=== PATIENT | male | born 1945 | race American Indian/Alaskan Native ===

== ENCOUNTER 2017-10-02 16:08 | Emergency (ER) | payer MEDICARE ==
--- NOTE | 2017-10-02 16:40 | Emergency Department Report ---
Chief Complaint: Chest Pain Stated Complaint: COPD/CHEST TIGHTNESS - HPI History of Present Illness: This is a 72-year-old male nontoxic, well nourished in appearance, no acute signs of distress presents to the ED with c/o of chest tightness 1 month. Patient denies any shortness of breath, numbness, tingling, fever, chills, nausea or vomiting. Discussed pain as aching level of 4 out of 10. Patient denies any calf pain, or Tenderness. Denies recent travels, long car rides or recent hospital stays. Denies any hemoptysis. - Exam Vital Signs: Vital Signs 10/02/17 16:13 Temperature 98.7 F Pulse Rate 74 Respiratory 20 Rate Blood Pressure 143/91 O2 Sat by Pulse 100 Oximetry Physical Exam: GENERAL: The patient is a well-developed, well-nourished female in no apparent distress. Patient is alert and acting appropriately for age. Alert and oriented 3, no apparent distress, normal gait, atraumatic. LUNGS: Clear to auscultation. Non labor breathing. No intercostal retractions. Symmetrical with respiration, no wheezing, no rales, or crackles. HEART: Regular rate and rhythm without murmur, rubs or gallops. No reproducible. S1, S2 present, regular rate and rhythm without murmur, no rubs, no gallops. MSE screening note: Focused history and physical exam performed. Due to findings the following was ordered: 1- This initial assessment/diagnostic orders/clinical plan/ treatment(s) is/are subject to change based on pt's health status, clinical progression and re- assessment by fellow clinical providers in the ED. Further treatment and workup at subsequent clinical provers discretion. Patient/guardians urged not to elope from ED as their condition may be serious if not clinically assessed and managed. 2-chest x-ray/EKG 3-CBC, BMP, UA, troponin, BNP, cardiac CK ED Disposition for MSE Condition: Stable
[2017-10-02 16:56] LABS: Basophils % (Auto) 0.8 % (0.0-1.8); Hematocrit 41.8 % (35.5-45.6); Hemoglobin 13.8 gm/dl (11.8-15.2); Mean Corpuscular HGB Conc 33 % (32-34); Mean Corpuscular Hemoglobin 30 pg (28-32); Mean Corpuscular Volume 90 fl (84-94); Platelet Count 197 K/mm3 (140-440); Red Blood Count 4.65 M/mm3 (3.65-5.03); Red Cell Distribution Width 13.3 % (13.2-15.2); White Blood Count 5.2 K/mm3 (4.5-11.0)
[2017-10-02 17:32] LABS: Creatine Kinase MB 2.3 ng/mL (0.0-4.0)
[2017-10-02 17:33] LABS: Anion Gap 17 mmol/L; BUN/Creatinine Ratio 10; Blood Urea Nitrogen 14 mg/dL (9-20); Carbon Dioxide 28 mmol/L (22-30); Chloride 100.9 mmol/L (98-107); Creatine Kinase 252 units/L (55-170); Glucose 98 mg/dL (75-100); Potassium 3.2 mmol/L (3.6-5.0); Sodium 143 mmol/L (137-145)
[2017-10-02] MEDS ORDERED: TYLENOL PO ONE (23:23)
--- NOTE | 2017-10-02 23:24 | Emergency Department Report ---
ED General Adult HPI - General Chief complaint: Chest Pain Stated complaint: COPD/CHEST TIGHTNESS Time Seen by Provider: 10/02/17 23:07 Source: patient, RN notes reviewed, old records reviewed Mode of arrival: Ambulatory Limitations: No Limitations - History of Present Illness Initial comments: This is a 72-year-old male whom I have evaluated in the past. Primary care Dr.: Dr. Sauer Cardiology: Dr. Godoy Past medical history: Hypertension, high cholesterol, COPD, BPH and cardiac bypass Patient presents to the ER with a complaint of chest tightness. The chest tightness has been present for 1 month. It does not radiate anywhere. There is no vomiting, diaphoresis or shortness of breath. There is no leg pain, no leg swelling, no recent surgeries or hospitalizations, and there are no DVT or pulmonary embolus risk factors. The chest pain has no exacerbating or relieving factors. Patient also endorses occipital headache which has been present for 1 month on review of systems. It is not sudden or thunderclap in nature. It did not reach maximal intensity within an hour. It does not radiate anywhere. He does not have exacerbating or relieving factors. Patient denies loss of visual acuity, admits to chronic tinnitus in the right ear, which is not new, worsening or different, has no claudication or visual symptoms. -: Gradual, week(s) Location: head, chest Radiation: non-radiation Severity scale (0 -10): 2 Quality: aching Consistency: intermittent Improves with: none Worsens with: none Associated Symptoms: chest pain, headaches. denies: confusion, shortness of breath - Related Data Home Medications Medication Instructions Recorded Confirmed Last Taken Aspirin 81 mg PO QDAY 06/08/16 06/08/16 Unknown Tamsulosin [Flomax] 0.4 mg PO QDAY 06/08/16 06/08/16 Unknown Previous Rx's Medication Instructions Recorded Last Taken Type Arformoterol Nebu [Brovana Nebu] 15 mcg IH Q12HRT #30 ml 02/02/16 Unknown Rx Budesonide [Pulmicort Respules] 0.5 mg IH Q12HRT #30 nebu 02/02/16 Unknown Rx Fluticasone [Flonase] 100 mcg NS BID #1 bottle 02/02/16 Unknown Rx Ipratropium/Albuterol Sulfate 1 ampul IH TIDRT PRN #30 ampul.neb 02/02/16 Unknown Rx [DUONEB *Not for PRN Use*] Pantoprazole [Protonix TAB] 40 mg PO QDAY #30 tablet 02/02/16 Unknown Rx Metoprolol Xl [Metoprolol 25 mg PO QDAY #30 tablet 06/09/16 Unknown Rx SUCCINATE ER TAB] Acetaminophen [Tylenol Arthritis] 650 mg PO Q6HR PRN #30 tablet.er 10/03/17 Unknown Rx Aspirin [Aspirin BABY CHEW TAB] 81 mg PO QDAY #30 tab.chew 10/03/17 Unknown Rx Potassium Chloride 20 meq PO QDAY #10 packet 10/03/17 Unknown Rx Allergies Allergy/AdvReac Type Severity Reaction Status Date / Time cyclobenzaprine AdvReac Shortness Verified 10/02/17 16:13 of Breath ED Review of Systems ROS: Stated complaint: COPD/CHEST TIGHTNESS Other details as noted in HPI Constitutional: denies: fever Eyes: denies: eye discharge Respiratory: denies: wheezing Cardiovascular: chest pain Gastrointestinal: denies: vomiting Genitourinary: as per HPI Musculoskeletal: as per HPI Skin: as per HPI Neurological: headache ED Past Medical Hx - Past Medical History Hx Hypertension: Yes Hx Heart Attack/AMI: No (coronary artery disease) Hx COPD: Yes Additional medical history: CAD, 'prostate problems'[id number](triple) - Surgical History Hx Open Heart Surgery: Yes (CABG) Additional Surgical History: hernia repair - Social History Smoking Status: Former Smoker Substance Use Type: None - Medications Home Medications: Home Medications Medication Instructions Recorded Confirmed Last Taken Type Arformoterol Nebu [Brovana Nebu] 15 mcg IH Q12HRT #30 ml 02/02/16 06/08/16 Unknown Rx Budesonide [Pulmicort Respules] 0.5 mg IH Q12HRT #30 nebu 02/02/16 06/08/16 Unknown Rx Fluticasone [Flonase] 100 mcg NS BID #1 bottle 02/02/16 06/08/16 Unknown Rx Ipratropium/Albuterol Sulfate 1 ampul IH TIDRT PRN #30 ampul.neb 02/02/16 Unknown Rx [DUONEB *Not for PRN Use*] Pantoprazole [Protonix TAB] 40 mg PO QDAY #30 tablet 02/02/16 06/08/16 Unknown Rx Aspirin 81 mg PO QDAY 06/08/16 06/08/16 Unknown History Tamsulosin [Flomax] 0.4 mg PO QDAY 06/08/16 06/08/16 Unknown History Metoprolol Xl [Metoprolol 25 mg PO QDAY #30 tablet 06/09/16 Unknown Rx SUCCINATE ER TAB] Acetaminophen [Tylenol Arthritis] 650 mg PO Q6HR PRN #30 tablet.er 10/03/17 Unknown Rx Aspirin [Aspirin BABY CHEW TAB] 81 mg PO QDAY #30 tab.chew 10/03/17 Unknown Rx Potassium Chloride 20 meq PO QDAY #10 packet 10/03/17 Unknown Rx ED Physical Exam - General Limitations: No Limitations General appearance: alert, in no apparent distress - Head Head exam: Present: atraumatic, normocephalic - Eye Eye exam: Present: normal appearance, PERRL, EOMI, other (visual acuity intact to finger counting, color perception, reading at a close distance). Absent: nystagmus - ENT ENT exam: Present: normal exam, normal orophraynx, mucous membranes moist, normal external ear exam - Neck Neck exam: Present: normal inspection, full ROM. Absent: tenderness, meningismus - Respiratory Respiratory exam: Present: normal lung sounds bilaterally. Absent: respiratory distress, chest wall tenderness - Cardiovascular Cardiovascular Exam: Present: regular rate, normal rhythm, normal heart sounds. Absent: systolic murmur, diastolic murmur, rubs, gallop - GI/Abdominal GI/Abdominal exam: Present: soft, normal bowel sounds. Absent: distended, tenderness, guarding, rebound, rigid, pulsatile mass - Rectal Rectal exam: Present: deferred - Extremities Exam Extremities exam: Present: normal inspection, full ROM, normal capillary refill , other (no palpable cord. Negative Homans sign.). Absent: pedal edema, joint swelling, calf tenderness - Back Exam Back exam: Present: normal inspection, full ROM. Absent: paraspinal tenderness , vertebral tenderness - Neurological Exam Neurological exam: Present: alert, oriented X3, CN II-XII intact, normal gait, other (Extraocular movements intact. Tongue midline. No facial droop. Facial sensation intact to light touch in the V1, V2, V3 distribution bilaterally. 5 and 5 strength in 4 extremities.. Sensation is intact to light touch in 4 extremities.). Absent: motor sensory deficit - Psychiatric Psychiatric exam: Present: normal affect, normal mood - Skin Skin exam: Present: warm, dry, intact, normal color. Absent: rash ED Course Vital Signs 10/02/17 10/02/17 10/02/17 16:13 22:21 22:23 Temperature 98.7 F Pulse Rate 74 65 73 Respiratory 20 15 14 Rate Blood Pressure 143/91 150/95 Blood Pressure [Right] O2 Sat by Pulse 100 100 Oximetry 10/02/17 10/03/17 22:39 02:25 Temperature Pulse Rate 68 Respiratory 18 20 Rate Blood Pressure Blood Pressure 128/81 [Right] O2 Sat by Pulse 99 99 Oximetry - Reevaluation(s) Reevaluation #1: 10/03/17 00:51 Differential diagnosis, including but not limited to: Migraine headache, tension headache, cluster headache, COPD, costochondritis, pneumonia, acute coronary syndrome Assessment and plan: 72-year-old male with 1 month of atypical chest discomfort , low risk by JONNATHAN score, low risk by heart score, low risk by well's criteria , no pulmonary embolus or DVT risk factors. Upon initial examination, patient is sleeping in a stretcher in no distress. His neurologic examination is unremarkable. Patient treated with symptomatic medication. On repeat examination, still sleeping comfortably, wakes up easily, repeat neurologic examination unremarkable. Appreciate patient's age and risk factor cohort, but objectively speaking, given 1 month of symptoms, troponin negative 2, EKG unchanged and unremarkable when compared to prior 2, I think acute coronary syndrome is extraordinarily unlikely, patient at low risk for major adverse cardiac event. Headache is nonspecific, clinically sober at this time, GCS of 15, with an NIH score of 0, no clinical indicators by history to suggest temporal arteritis, ischemic stroke or hemorrhagic stroke. Patient will be treated symptomatically medication, and he can follow-up with his primary care doctor for his headache. Reevaluation #2: 10/03/17 01:59 Patient reassessed. Sleeping comfortably. In no distress. Repeat neurologic examination is unremarkable and unchanged when reexamined. CT scan demonstrates new lacunar infarct when compared to prior CT scan from 2013. Given clinical history and duration of symptoms, I think it is very unlikely that the patient's had an acute or subacute stroke. He can follow up in outpatient primary care doctor for this. ED Medical Decision Making - Lab Data Result diagrams: 10/02/17 16:42 10/02/17 16:42 Vital Signs 10/02/17 10/02/17 10/02/17 16:13 22:21 22:23 Temperature 98.7 F Pulse Rate 74 65 73 Respiratory 20 15 14 Rate Blood Pressure 143/91 150/95 O2 Sat by Pulse 100 100 Oximetry 10/02/17 22:39 Temperature Pulse Rate Respiratory 18 Rate Blood Pressure O2 Sat by Pulse 99 Oximetry Lab Results 10/02/17 10/02/17 Range/Units 16:42 16:42 WBC 5.2 (4.5-11.0) K/mm3 RBC 4.65 (3.65-5.03) M/mm3 Hgb 13.8 (11.8-15.2) gm/dl Hct 41.8 (35.5-45.6) % MCV 90 (84-94) fl MCH 30 (28-32) pg MCHC 33 (32-34) % RDW 13.3 (13.2-15.2) % Plt Count 197 (140-440) K/mm3 Lymph % (Auto) 34.6 (13.4-35.0) % Taney % (Auto) 7.8 H (0.0-7.3) % Eos % (Auto) 7.0 H (0.0-4.3) % Baso % (Auto) 0.8 (0.0-1.8) % Lymph # 1.8 (1.2-5.4) K/mm3 Taney # 0.4 (0.0-0.8) K/mm3 Eos # 0.4 (0.0-0.4) K/mm3 Baso # 0.0 (0.0-0.1) K/mm3 Seg Neutrophils % 49.8 (40.0-70.0) % Seg Neutrophils # 2.6 (1.8-7.7) K/mm3 Sodium 143 (137-145) mmol/L Potassium 3.2 L (3.6-5.0) mmol/L Chloride 100.9 (98-107) mmol/L Carbon Dioxide 28 (22-30) mmol/L Anion Gap 17 mmol/L BUN 14 (9-20) mg/dL Creatinine 1.4 (0.8-1.5) mg/dL Estimated GFR > 60 ml/min BUN/Creatinine Ratio 10 % Glucose 98 (75-100) mg/dL Calcium 9.0 (8.4-10.2) mg/dL Total Creatine Kinase 252 H (55-170) units/L CK-MB (CK-2) 2.3 (0.0-4.0) ng/mL CK-MB (CK-2) Rel Index 0.9 (0-4) Troponin T < 0.010 (0.00-0.029) ng/mL NT-Pro-B Natriuret Pep 46.47 (0-900) pg/mL - EKG Data -: EKG Interpreted by Me EKG shows normal: sinus rhythm - EKG Data When compared to previous EKG there are: no significant change 10/03/17 00:55 EKG #1 demonstrates normal sinus, 67 beats per minute, normal intervals, normal axis, not morphologically consistent with ST elevation myocardial infarction, unchanged from prior EKG from November 2012. EKG #2 is unchanged from prior. - Radiology Data Radiology results: report reviewed, image reviewed interpreted by me: X-ray of the chest is negative for acute disease. Status post median sternotomy. Chronic findings of COPD noted. CT scan of the brain demonstrates chronic findings. No acute findings noted. Subacute infarct is noted. Critical care attestation.: If time is entered above; I have spent that time in minutes in the direct care of this critically ill patient, excluding procedure time. ED Disposition Clinical Impression: Chest tightness, Hypokalemia Disposition: - TO HOME OR SELFCARE Is pt being admited?: No Does the pt Need Aspirin: No Condition: Stable Additional Instructions: Take medications as needed/directed. Follow-up with either your primary care doctor or corporate coordinator for chest discomfort within the next 5-7 days. Follow- up with your primary care doctor for your headache within the next week. Return to the ER right away with new pain, worsened pain, migration of pain, fevers, chills, lethargy, irritability, particularly vomiting, change in mental status, inability to tolerate liquid feeds. Prescriptions: Acetaminophen [Tylenol Arthritis] 650 mg PO Q6HR PRN #30 tablet.er PRN Reason: Pain Aspirin [Aspirin BABY CHEW TAB] 81 mg PO QDAY #30 tab.chew Potassium Chloride 20 meq PO QDAY #10 packet Referrals: PRIMARY CARE, [Primary Care Provider] - 3-5 Days CARA SAUER MD [Referring] - 3-5 Days CHASITY SAUER DO [Referring] - 3-5 Days KRISTYN SAUER MD [Referring] - 3-5 Days ALIVIA VALE MD [Staff Physician] - 3-5 Days
[2017-10-03] MEDS ORDERED: K-DUR PO ONE (00:54)
--- NOTE | 2017-10-03 01:47 | Cat Scan Report ---
FINAL REPORT EXAM: CT HEAD/BRAIN W/O CONTRAST. HISTORY: Headache. TECHNIQUE: Unenhanced axial CT images of the brain were obtained. Comparison is made with prior study 11/24/2012. FINDINGS: The cortical sulci and ventricles are within normal limits for patient's age. A 5 mm lacunar infarction is seen in the periventricular white matter adjacent to the right frontal horn, new compared to prior exam. There are superimposed patchy areas of low-attenuation in the periventricular and subcortical white matter, nonspecific but most likely chronic small vessel ischemic disease, stable in appearance. The maier-white differentiation is maintained. There is no extra-axial fluid collection, mass, mass effect, midline shift, hydrocephalus, or acute intracranial hemorrhage. There is moderate sinus mucosal thickening in bilateral ethmoid air cells. There is also mild sinus mucosal thickening in the right frontal and right sphenoid sinuses. The remainder of the visualized paranasal sinuses and mastoid air cells are clear. There are no air-fluid levels. Overall, the paranasal sinus mucosal disease is not as severe as seen on prior exam. There is no skull fracture or other osseous abnormality. The visualized orbits and globes are grossly unremarkable. IMPRESSION: 1. No acute intracranial abnormality. 2. 5 mm lacunar infarction in the periventricular white matter adjacent to the right frontal horn, new compared to prior exam. Probable chronic small vessel ischemic disease, stable compared to 11/24/2012. 3. Paranasal sinus mucosal disease, overall slightly improved compared to prior exam.
[2017-10-03 02:37] VITALS: BP 128/81
--- NOTE | 2017-10-03 10:21 | XRay Report ---
CHEST 2 VIEWS INDICATION: Chest pain. COMPARISON: 09/12/2017 FINDINGS: PA and lateral chest radiographs demonstrate stable cardiomediastinal silhouette, post CABG changes and mildly hyperexpanded lungs. No pleural effusions or CHF. Biapical scarring/pleural thickening. Stable bony degenerative changes, including mild lower thoracic levoscoliosis. CONCLUSION: No acute chest process or significant interval change, as described. Thank you for the opportunity to participate in this patient's care.
== END 2017-10-03 02:37 | disposition home or self-care (01) ==
LOC: ED 16:08
DX: R07.89 Other chest pain (principal); E87.6 Hypokalemia; I10 Essential (primary) hypertension; J44.9 Chronic obstructive pulmonary disease, unspecified; I25.2 Old myocardial infarction; I25.10 Atherosclerotic heart disease of native coronary artery without angina pectoris; Z87.891 Personal history of nicotine dependence; Z79.82 Long term (current) use of aspirin; Z98.890 Other specified postprocedural states; Z88.8 Allergy status to other drugs, medicaments and biological substances
CPT/HCPCS: 36415; 70450; 71020; 80048; 82550; 82553; 83880; 84484; 85025; 93005; 93010; 99284

== ENCOUNTER 2017-12-03 01:35 | Emergency (ER) | payer MEDICARE ==
[2017-12-03] MEDS ORDERED: ASPIRIN PO ONE (10:27)
[2017-12-03 10:54] LABS: Basophils % (Auto) 0.6 % (0.0-1.8); Eosinophils # (Auto) 0.4 K/mm3 (0.0-0.4); Eosinophils % (Auto) 7.3 % (0.0-4.3); Hematocrit 41.1 % (35.5-45.6); Lymphocytes # (Auto) 1.8 K/mm3 (1.2-5.4); Lymphocytes % (Auto) 31.1 % (13.4-35.0); Mean Corpuscular HGB Conc 34 % (32-34); Mean Corpuscular Hemoglobin 31 pg (28-32); Mean Corpuscular Volume 90 fl (84-94); Monocytes # (Auto) 0.5 K/mm3 (0.0-0.8); Monocytes % (Auto) 7.7 % (0.0-7.3); Platelet Count 173 K/mm3 (140-440); Red Blood Count 4.59 M/mm3 (3.65-5.03); Red Cell Distribution Width 13.4 % (13.2-15.2)
[2017-12-03 11:10] LABS: BUN/Creatinine Ratio 12; Blood Urea Nitrogen 14 mg/dL (9-20); Calcium 9.2 mg/dL (8.4-10.2); Hemolysis Index 10
[2017-12-03] MEDS ORDERED: CATAPRES PO ONE (16:25)
--- NOTE | 2017-12-03 16:58 | Emergency Department Report ---
ED Chest Pain HPI - General Chief Complaint: Chest Pain Stated Complaint: CHEST PAIN Time Seen by Provider: 12/03/17 16:14 Source: patient Mode of arrival: Ambulatory Limitations: No Limitations - History of Present Illness Initial Comments: Patient is a 72-year-old [place] male who is presenting with chest discomfort. Patient states he has a history of coronary disease with CABG in 2011 as well as GERD is presenting stating that several days ago he made some pork chops and ate them fine. Patient then states that yesterday he ate while in the [place] [employer] and [place] and that and thinks it may have been just too salty. Patient states his blood pressure did elevate and he came to the hospital because of his blood pressure. Patient states he does have some chest tightness and burning sensation that happens intermittently however this present for several months and has been attributed to his GERD. Chest tightness is located in the epigastrium and he states is a 3 out of 10 intermittent. She states this is also been slightly worse since he ate pork chops. Patient currently has no chest discomfort during the time of the history and physical patient states he has a very mild headache blood pressure is 160/93. Patient is denying any nausea vomiting diarrhea chest tightness fever cough at this time. Severity scale (0 -10): 2 - Related Data Home Medications Medication Instructions Recorded Confirmed Last Taken Aspirin 81 mg PO QDAY 06/08/16 06/08/16 Unknown Tamsulosin [Flomax] 0.4 mg PO QDAY 06/08/16 06/08/16 Unknown Previous Rx's Medication Instructions Recorded Last Taken Type Arformoterol Nebu [Brovana Nebu] 15 mcg IH Q12HRT #30 ml 02/02/16 Unknown Rx Budesonide [Pulmicort Respules] 0.5 mg IH Q12HRT #30 nebu 02/02/16 Unknown Rx Fluticasone [Flonase] 100 mcg NS BID #1 bottle 02/02/16 Unknown Rx Ipratropium/Albuterol Sulfate 1 ampul IH TIDRT PRN #30 ampul.neb 02/02/16 Unknown Rx [DUONEB *Not for PRN Use*] Pantoprazole [Protonix TAB] 40 mg PO QDAY #30 tablet 02/02/16 Unknown Rx Metoprolol Xl [Metoprolol 25 mg PO QDAY #30 tablet 06/09/16 Unknown Rx SUCCINATE ER TAB] Acetaminophen [Tylenol Arthritis] 650 mg PO Q6HR PRN #30 tablet.er 10/03/17 Unknown Rx Aspirin [Aspirin BABY CHEW TAB] 81 mg PO QDAY #30 tab.chew 10/03/17 Unknown Rx Potassium Chloride 20 meq PO QDAY #10 packet 10/03/17 Unknown Rx Sucralfate [Carafate] 1 gm PO Q6HR 20 Days tablet 12/03/17 Unknown Rx Allergies Allergy/AdvReac Type Severity Reaction Status Date / Time cyclobenzaprine AdvReac Shortness Verified 10/02/17 16:13 of Breath Heart Score - HEART Score History: Slightly suspicious EKG: Normal Age: > 65 Risk factors: > 3 risk factors or hx of atherosclerotic disease Troponin: < normal limit HEART Score: 4 ED Review of Systems ROS: Stated complaint: CHEST PAIN Other details as noted in HPI Comment: All other systems reviewed and negative ED Past Medical Hx - Past Medical History Hx Hypertension: Yes Hx Heart Attack/AMI: No (coronary artery disease) Hx COPD: Yes Additional medical history: CAD, 'prostate problems'Cabjeannette 2011(triple) - Surgical History Past Surgical History?: Yes Hx Open Heart Surgery: Yes (CABG) Additional Surgical History: hernia repair - Social History Smoking Status: Never Smoker Substance Use Type: None - Medications Home Medications: Home Medications Medication Instructions Recorded Confirmed Last Taken Type Arformoterol Nebu [Brovana Nebu] 15 mcg IH Q12HRT #30 ml 02/02/16 06/08/16 Unknown Rx Budesonide [Pulmicort Respules] 0.5 mg IH Q12HRT #30 nebu 02/02/16 06/08/16 Unknown Rx Fluticasone [Flonase] 100 mcg NS BID #1 bottle 02/02/16 06/08/16 Unknown Rx Ipratropium/Albuterol Sulfate 1 ampul IH TIDRT PRN #30 ampul.neb 02/02/16 Unknown Rx [DUONEB *Not for PRN Use*] Pantoprazole [Protonix TAB] 40 mg PO QDAY #30 tablet 02/02/16 06/08/16 Unknown Rx Aspirin 81 mg PO QDAY 06/08/16 06/08/16 Unknown History Tamsulosin [Flomax] 0.4 mg PO QDAY 06/08/16 06/08/16 Unknown History Metoprolol Xl [Metoprolol 25 mg PO QDAY #30 tablet 06/09/16 Unknown Rx SUCCINATE ER TAB] Acetaminophen [Tylenol Arthritis] 650 mg PO Q6HR PRN #30 tablet.er 10/03/17 Unknown Rx Aspirin [Aspirin BABY CHEW TAB] 81 mg PO QDAY #30 tab.chew 10/03/17 Unknown Rx Potassium Chloride 20 meq PO QDAY #10 packet 10/03/17 Unknown Rx Sucralfate [Carafate] 1 gm PO Q6HR 20 Days tablet 12/03/17 Unknown Rx ED Physical Exam - General Limitations: No Limitations General appearance: alert, in no apparent distress - Head Head exam: Present: atraumatic, normocephalic - Eye Eye exam: Present: normal appearance - ENT ENT exam: Present: mucous membranes moist - Neck Neck exam: Present: normal inspection - Respiratory Respiratory exam: Present: normal lung sounds bilaterally. Absent: respiratory distress - Cardiovascular Cardiovascular Exam: Present: regular rate, normal rhythm. Absent: systolic murmur, diastolic murmur, rubs, gallop - GI/Abdominal GI/Abdominal exam: Present: soft, normal bowel sounds - Rectal Rectal exam: Present: deferred - Extremities Exam Extremities exam: Present: normal inspection - Back Exam Back exam: Present: normal inspection - Neurological Exam Neurological exam: Present: alert, oriented X3 - Psychiatric Psychiatric exam: Present: normal affect, normal mood - Skin Skin exam: Present: warm, dry, intact, normal color. Absent: rash ED Course Vital Signs 12/03/17 12/03/17 12/03/17 01:41 01:55 16:18 Temperature 98.2 F 98.2 F Pulse Rate 78 77 Respiratory 18 17 16 Rate Blood Pressure 170/106 170/106 O2 Sat by Pulse 96 99 99 Oximetry ED Medical Decision Making - Lab Data Result diagrams: 12/03/17 10:33 12/03/17 10:33 Lab Results 12/03/17 12/03/17 12/03/17 Range/Units 10:33 10:33 13:26 WBC 5.9 (4.5-11.0) K/mm3 RBC 4.59 (3.65-5.03) M/mm3 Hgb 14.0 (11.8-15.2) gm/dl Hct 41.1 (35.5-45.6) % MCV 90 (84-94) fl MCH 31 (28-32) pg MCHC 34 (32-34) % RDW 13.4 (13.2-15.2) % Plt Count 173 (140-440) K/mm3 Lymph % (Auto) 31.1 (13.4-35.0) % Benson % (Auto) 7.7 H (0.0-7.3) % Eos % (Auto) 7.3 H (0.0-4.3) % Baso % (Auto) 0.6 (0.0-1.8) % Lymph # 1.8 (1.2-5.4) K/mm3 Benson # 0.5 (0.0-0.8) K/mm3 Eos # 0.4 (0.0-0.4) K/mm3 Baso # 0.0 (0.0-0.1) K/mm3 Seg Neutrophils % 53.3 (40.0-70.0) % Seg Neutrophils # 3.1 (1.8-7.7) K/mm3 Sodium 143 (137-145) mmol/L Potassium 3.7 (3.6-5.0) mmol/L Chloride 103.0 (98-107) mmol/L Carbon Dioxide 29 (22-30) mmol/L Anion Gap 15 mmol/L BUN 14 (9-20) mg/dL Creatinine 1.2 (0.8-1.5) mg/dL Estimated GFR > 60 ml/min BUN/Creatinine Ratio 12 % Glucose 99 (75-100) mg/dL Calcium 9.2 (8.4-10.2) mg/dL Troponin T < 0.010 < 0.010 (0.00-0.029) ng/mL - EKG Data -: EKG Interpreted by Nm - EKG Data Interpretation: other (EKG shows sinus rhythm with a rate of 61. His evidence of LVH normal axis normal intervals no ST segment elevation or depressions time of interpretation is 1118) - Medical Decision Making Patient is a 72-year-old [place] male who is presenting with elevation of his blood pressure. Patient initially had a blood pressure 170/106. It's time of discharge 145 systolic patient has no headache currently is feeling well. Patient states that his chest discomfort is most likely secondary to GERD this is located in epigastrium patient has no tenderness on lateral palpation. Patient will be started on Carafate for GERD be discharged home Critical care attestation.: If time is entered above; I have spent that time in minutes in the direct care of this critically ill patient, excluding procedure time. ED Disposition Clinical Impression: Atypical chest pain, Asymptomatic hypertensive urgency GERD (gastroesophageal reflux disease) Qualifiers: Esophagitis presence: esophagitis presence not specified Qualified Code(s): K21.9 - Gastro-esophageal reflux disease without esophagitis Disposition: TO HOME OR SELFCARE Is pt being admited?: No Does the pt Need Aspirin: No Condition: Stable Instructions: Chest Pain (ED), Hypertension (ED) Additional Instructions: Please have your primary care physician or recheck your blood pressure in one week. If the elevated blood pressure was secondary to the pork chops that she ate this should be down by next week without having to change her blood pressure medications. Please continue to avoid salty foods Prescriptions: Sucralfate [Carafate] 1 gm PO Q6HR 20 Days tablet Referrals: PRIMARY CARE, [Primary Care Provider] - 3-5 Days
[2017-12-03 17:53] VITALS: BP 139/87
[2017-12-03] MEDS ORDERED: ECOTRIN PO ONE (17:56)
== END 2017-12-03 18:07 | disposition home or self-care (01) ==
LOC: ED 01:35
DX: K21.9 Gastro-esophageal reflux disease without esophagitis (principal); I10 Essential (primary) hypertension; R07.9 Chest pain, unspecified; J44.9 Chronic obstructive pulmonary disease, unspecified
CPT/HCPCS: 36415; 80048; 84484; 85025; 93005; 93010; 99283

== ENCOUNTER 2017-12-26 11:20 | Outpatient (CLI) | payer MEDICARE ==
--- NOTE | 2017-12-26 15:56 | Cat Scan Report ---
CT CHEST WITHOUT CONTRAST INDICATION: Chest wall pain. COMPARISON: None similar. FINDINGS: Noncontrast chest CT demonstrates post CABG changes/coronary calcifications. Normal heart size. No effusions. Assessment of the great vessels and for detecting subtle lymphadenopathy limited due to lack of IV contrast. Patent central airway. No significant axillary lymphadenopathy. Grossly unremarkable left thyroid lobe, though right thyroid lobe not visible. Mild bilateral emphysematous changes, most involving the upper lobes. Mild biapical scarring as well. No focal suspicious lung masses. Nonspecific distal esophageal wall prominence/thickening, not excluded for gastroesophageal reflux and/or hiatal hernia, amongst others. Included abdomen demonstrates mild infrarenal ectasia with caliber up to 2.8 cm, axial image 141, series 2. Mild lower thoracic-lumbar dextroscoliosis with L2-L3 asymmetric disc narrowing and spurring on the left. Lower cervical spine degenerative changes also noted. CONCLUSION: No acute chest CT abnormality on this unenhanced exam with various other findings as COPD, post CABG changes, nonvisualized right thyroid lobe, distal esophageal thickening and distal aortic ectasia, amongst others, as detailed above. Please correlate. Thank you for the opportunity to participate in this patient's care.
== END 2017-12-26 11:21 | disposition home or self-care (01) ==
LOC: CT 11:20
PROVIDERS: ATTEND Family Medicine
DX: J44.9 Chronic obstructive pulmonary disease, unspecified (principal); I25.10 Atherosclerotic heart disease of native coronary artery without angina pectoris; R07.89 Other chest pain; M41.85 Other forms of scoliosis, thoracolumbar region; M47.892 Other spondylosis, cervical region; Z95.1 Presence of aortocoronary bypass graft
CPT/HCPCS: 71250

== ENCOUNTER 2019-03-28 16:19 | Emergency (ER) | payer MEDICARE ==
--- NOTE | 2019-03-28 16:35 | Emergency Department Report ---
Blank Doc - Documentation Documentation: states he had a "light headache" two hours ago which made him check his pressure 202/77 pt states that his blood pressure was elevated no ROSS currently states his vision feels blurry today and still feels blurry now no numbness or weakness was started on this medication two weeks ago, he takes telmisartan 20 mg previously took metoprolol 40 mg
[2019-03-28 16:54] LABS: Basophils % (Auto) 0.9 % (0.0-1.8); Eosinophils # (Auto) 0.4 K/mm3 (0.0-0.4); Eosinophils % (Auto) 8.6 % (0.0-4.3); Hematocrit 39.9 % (35.5-45.6); Hemoglobin 13.4 gm/dl (11.8-15.2); Lymphocytes # (Auto) 1.9 K/mm3 (1.2-5.4); Lymphocytes % (Auto) 40.1 % (13.4-35.0); Mean Corpuscular HGB Conc 34 % (32-34); Mean Corpuscular Volume 90 fl (84-94); Monocytes # (Auto) 0.4 K/mm3 (0.0-0.8); Monocytes % (Auto) 7.9 % (0.0-7.3); Platelet Count 166 K/mm3 (140-440); Red Blood Count 4.46 M/mm3 (3.65-5.03); Red Cell Distribution Width 14.3 % (13.2-15.2)
[2019-03-28 17:09] LABS: Bilirubin,Urine NEG (Negative); Blood,Urine NEG (Negative); Color,Urine Straw (Yellow); Protein,Urine <15 mg/dL mg/dL (Negative); Urobilinogen,Urine < 2.0 mg/dL (<2.0); WBC,Urine < 1.0 /HPF (0.0-6.0)
--- NOTE | 2019-03-28 17:41 | Emergency Department Report ---
ED Dizziness HPI - General Chief Complaint: High BP Stated Complaint: HBP Time Seen by Provider: 03/28/19 17:21 Source: patient Mode of arrival: Ambulatory Limitations: No Limitations - History of Present Illness Initial Comments: Patient is a 73-year-old male presents to emergency room with complaints of high blood pressure. 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 Patient's current blood pressure is 191/109. Patient denies chest pain or shortness of breath. Patient states prior to arrival he was a little lightheaded and had some blurry vision but that has since resolved. She states approximately 2 weeks ago he started a new blood pressure medication. MD Complaint: lightheadedness -: Sudden Timing: sudden onset, now resolved Description: lightheadedness History of Same: No History of Trauma: No Severity: mild Improves With: rest Worsens With: position, exertion Associated Symptoms: denies: ataxia, chest pain, confusion, cough, diaphoresis, fever/chills, loss of appetite, malaise, rash, seizure, shortness of breath, syn cope, weakness - Related Data Home Medications Medication Instructions Recorded Confirmed Last Taken Aspirin 81 mg PO QDAY 06/08/16 03/28/19 Unknown Tamsulosin [Flomax] 0.4 mg PO QDAY 06/08/16 03/28/19 Unknown Previous Rx's Medication Instructions Recorded Last Taken Type Arformoterol Nebu [Brovana Nebu] 15 mcg IH Q12HRT #30 ml 02/02/16 Unknown Rx Budesonide [Pulmicort Respules] 0.5 mg IH Q12HRT #30 nebu 02/02/16 Unknown Rx Fluticasone [Flonase] 100 mcg NS BID #1 bottle 02/02/16 Unknown Rx Ipratropium/Albuterol Sulfate 1 ampul IH TIDRT PRN #30 ampul.neb 02/02/16 Unknown Rx [DUONEB *Not for PRN Use*] Pantoprazole [Protonix TAB] 40 mg PO QDAY #30 tablet 02/02/16 Unknown Rx Metoprolol Xl [Metoprolol 25 mg PO QDAY #30 tablet 06/09/16 Unknown Rx SUCCINATE ER TAB] Acetaminophen [Tylenol Arthritis] 650 mg PO Q6HR PRN #30 tablet.er 10/03/17 Unknown Rx Aspirin [Aspirin BABY CHEW TAB] 81 mg PO QDAY #30 tab.chew 10/03/17 Unknown Rx Potassium Chloride 20 meq PO QDAY #10 packet 10/03/17 Unknown Rx Sucralfate [Carafate] 1 gm PO Q6HR 20 Days tablet 12/03/17 Unknown Rx Telmisartan [Micardis] 20 mg PO BID 10 Days #20 tablet 03/28/19 Unknown Rx Allergies Allergy/AdvReac Type Severity Reaction Status Date / Time cyclobenzaprine AdvReac Shortness Verified 03/28/19 16:19 of Breath ED Review of Systems ROS: Stated complaint: HBP Other details as noted in HPI Constitutional: denies: chills, fever Eyes: denies: eye pain, eye discharge, vision change ENT: denies: ear pain, throat pain Respiratory: denies: cough, shortness of breath, wheezing Cardiovascular: denies: chest pain, palpitations Endocrine: no symptoms reported Gastrointestinal: denies: abdominal pain, nausea, diarrhea Genitourinary: denies: urgency, dysuria Musculoskeletal: denies: back pain, joint swelling, arthralgia Skin: denies: rash, lesions Neurological: denies: headache, weakness, paresthesias Psychiatric: denies: anxiety, depression Hematological/Lymphatic: denies: easy bleeding, easy bruising ED Past Medical Hx - Past Medical History Previous Medical History?: Yes Hx Hypertension: Yes Hx COPD: Yes Additional medical history: CAD, "prostate problems" - Surgical History Past Surgical History?: Yes Hx Open Heart Surgery: Yes (CABG (, 2011)) Additional Surgical History: hernia repair - Family History Family history: no significant - Social History Smoking Status: Never Smoker Substance Use Type: None - Medications Home Medications: Home Medications Medication Instructions Recorded Confirmed Last Taken Type Arformoterol Nebu [Brovana Nebu] 15 mcg IH Q12HRT #30 ml 02/02/16 03/28/19 Unknown Rx Budesonide [Pulmicort Respules] 0.5 mg IH Q12HRT #30 nebu 02/02/16 03/28/19 Unknown Rx Fluticasone [Flonase] 100 mcg NS BID #1 bottle 02/02/16 03/28/19 Unknown Rx Ipratropium/Albuterol Sulfate 1 ampul IH TIDRT PRN #30 ampul.neb 02/02/16 03/28/19 Unknown Rx [DUONEB *Not for PRN Use*] Pantoprazole [Protonix TAB] 40 mg PO QDAY #30 tablet 02/02/16 03/28/19 Unknown Rx Aspirin 81 mg PO QDAY 06/08/16 03/28/19 Unknown History Tamsulosin [Flomax] 0.4 mg PO QDAY 06/08/16 03/28/19 Unknown History Metoprolol Xl [Metoprolol 25 mg PO QDAY #30 tablet 06/09/16 03/28/19 Unknown Rx SUCCINATE ER TAB] Acetaminophen [Tylenol Arthritis] 650 mg PO Q6HR PRN #30 tablet.er 10/03/17 03/28/19 Unknown Rx Aspirin [Aspirin BABY CHEW TAB] 81 mg PO QDAY #30 tab.chew 10/03/17 03/28/19 Unknown Rx Potassium Chloride 20 meq PO QDAY #10 packet 10/03/17 03/28/19 Unknown Rx Sucralfate [Carafate] 1 gm PO Q6HR 20 Days tablet 12/03/17 03/28/19 Unknown Rx Telmisartan [Micardis] 20 mg PO BID 10 Days #20 tablet 03/28/19 Unknown Rx ED Physical Exam - General Limitations: No Limitations General appearance: alert, in no apparent distress - Head Head exam: Present: atraumatic, normocephalic - Eye Eye exam: Present: normal appearance, PERRL Pupils: Present: normal accommodation - ENT ENT exam: Present: mucous membranes moist - Neck Neck exam: Present: normal inspection, full ROM. Absent: tenderness, meningismus, lymphadenopathy, thyromegaly - Respiratory Respiratory exam: Present: normal lung sounds bilaterally. Absent: respiratory distress - Cardiovascular Cardiovascular Exam: Present: regular rate, normal rhythm. Absent: systolic murmur, diastolic murmur, rubs, gallop - GI/Abdominal GI/Abdominal exam: Present: soft, normal bowel sounds. Absent: distended, tenderness - Rectal Rectal exam: Present: deferred - Extremities Exam Extremities exam: Present: normal inspection, full ROM. Absent: tenderness - Back Exam Back exam: Present: normal inspection, full ROM - Neurological Exam Neurological exam: Present: alert, oriented X3, normal gait - Psychiatric Psychiatric exam: Present: normal affect, normal mood - Skin Skin exam: Present: warm, dry, intact, normal color. Absent: rash ED Course Vital Signs 03/28/19 03/28/19 03/28/19 16:32 17:35 17:38 Temperature 98.5 F Pulse Rate 78 70 72 Respiratory 16 14 13 Rate Blood Pressure Blood Pressure 191/109 177/110 [Left] O2 Sat by Pulse 96 98 99 Oximetry 03/28/19 03/28/19 03/28/19 17:41 17:46 18:00 Temperature Pulse Rate 60 58 L Respiratory 14 17 16 Rate Blood Pressure 177/110 177/110 Blood Pressure [Left] O2 Sat by Pulse 99 98 Oximetry 03/28/19 03/28/19 03/28/19 18:10 18:16 18:30 Temperature Pulse Rate 60 60 58 L Respiratory 14 22 16 Rate Blood Pressure 178/104 177/110 Blood Pressure 178/104 [Left] O2 Sat by Pulse 98 97 98 Oximetry 03/28/19 03/28/19 18:40 18:46 Temperature Pulse Rate 62 60 Respiratory 16 16 Rate Blood Pressure 161/98 Blood Pressure 161/98 [Left] O2 Sat by Pulse 98 97 Oximetry - Reevaluation(s) Reevaluation #1: Discussed all results with patient. Patient stable for discharge. Patient will be discharged home. Patient agrees plan of care. Discussed all discharge instructions the patient. Patient voiced understanding of discharge instructions. 03/28/19 18:35 ED Medical Decision Making - Lab Data Result diagrams: 03/28/19 16:40 03/28/19 16:40 - Radiology Data Radiology results: report reviewed PROCEDURE: CT HEAD/BRAIN WO CON TECHNIQUE: Computerized tomography of the head was performed without contrast material. CT DOSE LENGTH PRODUCT: 805.4 mGycm HISTORY: elevated BP, blurry vision COMPARISONS: Head CT dated October 02, 2017 . FINDINGS: There is no evidence evidence of an acute intracranial process, intracranial hemorrhage or mass effect. Ventricular size is concordant with the degree of atrophy. There is atherosclerotic vascular calcification of the internal carotid arteries bilaterally at the skull base. The visualized portions of the orbits, paranasal and mastoid sinuses are notable for moderate bilateral ethmoid sinus mucosal thickening and near complete opacification of the visualized portion of the left maxillary sinus with an air-fluid level. The bony structures are unremarkable. IMPRESSION: 1. No evidence of an acute intracranial process, intracranial hemorrhage or mass effect. If there is a clinical suspicion of an acute intracranial process MRI brain may be helpful. 2. Bilateral ethmoid and left maxillary sinus disease with air-fluid level left maxillary sinus suggestive of acute sinusitis - Medical Decision Making Patient is a 73-year-old male presents emergency room with multiple complaints of blurry vision and lightheadedness and elevated blood pressure. Symptoms are most likely secondary to elevated blood pressure. Labs are unremarkable. CT is negative. We will increase the patient's blood pressure medications. Patient was initially started on telmisartan 20 mg and we will increase to 40 per day. - Differential Diagnosis high blood pressure. Lightheadedness.Vision. Critical care attestation.: If time is entered above; I have spent that time in minutes in the direct care o f this critically ill patient, excluding procedure time. ED Disposition Clinical Impression: Lightheadedness HTN (hypertension) Qualifiers: Hypertension type: essential hypertension Qualified Code(s): I10 - Essential (primary) hypertension Disposition: TO HOME OR SELFCARE Is pt being admited?: No Does the pt Need Aspirin: No Condition: Stable Instructions: DASH Eating Plan (ED), Low Sodium Diet (ED), Hypertension (ED) Additional Instructions: Patient to follow-up with primary care in 2-3 days. Patient to take Tylenol or ibuprofen when necessary for pain. Patient to return to ER if condition worsens. Patient to take meds as directed. Patient to increase water. Patient to rest. Patient to continue all meds. Patient is a low-salt diet. Patient heart healthy diet. Prescriptions: Telmisartan [Micardis] 20 mg PO BID 10 Days #20 tablet Referrals: TRIP RINCON MD [Primary Care Provider] - 2-3 Days Time of Disposition: 18:40
--- NOTE | 2019-03-28 18:23 | Cat Scan Report ---
PROCEDURE: CT HEAD/BRAIN WO CON TECHNIQUE: Computerized tomography of the head was performed without contrast material. CT DOSE LENGTH PRODUCT: 805.4 mGycm HISTORY: elevated BP, blurry vision COMPARISONS: Head CT dated October 02, 2017 . FINDINGS: There is no evidence evidence of an acute intracranial process, intracranial hemorrhage or mass effec t. Ventricular size is concordant with the degree of atrophy. There is atherosclerotic vascular calcification of the internal carotid arteries bilaterally at the s kull base. The visualized portions of the orbits, paranasal and mastoid sinuses are notable for moderate bilater al ethmoid sinus mucosal thickening and near complete opacification of the visualized portion of the left maxillary sinus with an air-fluid level. The bony structures are unremarkable. IMPRESSION: 1. No evidence of an acute intracranial process, intracranial hemorrhage or mass effect. If there is a clinical suspicion of an acute intracranial process MRI brain may be helpful. 2. Bilateral ethmoid and left maxillary sinus disease with air-fluid level left maxillary sinus sugge stive of acute sinusitis. This document is electronically signed by Rachel Quezada MD., Mar 28 2019 06:21:50 PM ET
[2019-03-28 18:49] VITALS: BP 161/98
== END 2019-03-28 18:45 | disposition home or self-care (01) ==
LOC: ED 16:19
DX: I10 Essential (primary) hypertension (principal); J44.9 Chronic obstructive pulmonary disease, unspecified; Z95.1 Presence of aortocoronary bypass graft; Z79.899 Other long term (current) drug therapy; Z88.8 Allergy status to other drugs, medicaments and biological substances
CPT/HCPCS: 36415; 70450; 80048; 81001; 85025

== ENCOUNTER 2019-09-29 08:07 | Emergency (ER) | payer MEDICARE ==
[2019-09-29 10:33] LABS: Basophils % (Auto) 1.1 % (0.0-1.8); Eosinophils # (Auto) 0.2 K/mm3 (0.0-0.4); Eosinophils % (Auto) 4.1 % (0.0-4.3); Hematocrit 39.2 % (35.5-45.6); Hemoglobin 13.3 gm/dl (11.8-15.2); Lymphocytes # (Auto) 1.1 K/mm3 (1.2-5.4); Lymphocytes % (Auto) 27.2 % (13.4-35.0); Mean Corpuscular HGB Conc 34 % (32-34); Mean Corpuscular Volume 89 fl (84-94); Monocytes # (Auto) 0.3 K/mm3 (0.0-0.8); Monocytes % (Auto) 7.8 % (0.0-7.3); Platelet Count 150 K/mm3 (140-440); Red Blood Count 4.39 M/mm3 (3.65-5.03); Red Cell Distribution Width 14.9 % (13.2-15.2)
[2019-09-29 10:55] LABS: Calcium 9.2 mg/dL (8.4-10.2); Creatine Kinase MB 1.7 ng/mL (0.0-4.0)
[2019-09-29 10:58] LABS: Alanine Aminotransferase 17 units/L (7-56); Albumin 4.1 g/dL (3.9-5); Bilirubin,Direct < 0.2 mg/dL (0-0.2)
--- NOTE | 2019-09-29 11:06 | XRay Report ---
CHEST 1 VIEW INDICATION / CLINICAL INFORMATION: hypertension. COMPARISON: 10/02/2017 FINDINGS: SUPPORT DEVICES: None. HEART / MEDIASTINUM: Changes of prior median sternotomy are again noted LUNGS / PLEURA: No significant pulmonary or pleural abnormality.. No pneumothorax. ADDITIONAL FINDINGS: No significant additional findings. IMPRESSION: 1. No acute findings. Signer Name: Shankar Henderson MD Signed: 09/29/2019 11:01 AM Workstation Name: [id number]
--- NOTE | 2019-09-29 12:40 | Emergency Department Report ---
ED General Adult HPI - General Chief complaint: High BP Stated complaint: BLOOD PRESSURE CHECK Time Seen by Provider: 09/29/19 09:15 Source: patient Mode of arrival: Ambulatory Limitations: No Limitations - History of Present Illness Initial comments: 74-year-old man was concerned regarding his blood pressure as it was quite elevated last night. He states he took it again and it was somewhat lower and then presented to the fire station and they found a lower blood pressure which was still a elevated. He arrives with blood pressure approximately 160/105. Patient does not claim chest pain or shortness of breath. He refers some dizziness this a.m. at triage but does not complain of dizziness at all during my encounter. He denies headache. He denies any focal neurological change. He's had no vertigo. He is recently had Micardis added to his blood pressure regimen he coughs his blood pressure was poorly controlled. -: Gradual Improves with: none Worsens with: none Associated Symptoms: denies other symptoms - Related Data Home Medications Medication Instructions Recorded Confirmed Last Taken Aspirin 81 mg PO QDAY 06/08/16 03/28/19 Unknown Tamsulosin [Flomax] 0.4 mg PO QDAY 06/08/16 03/28/19 Unknown Previous Rx's Medication Instructions Recorded Last Taken Type Arformoterol Nebu [Brovana Nebu] 15 mcg IH Q12HRT #30 ml 02/02/16 Unknown Rx Budesonide [Pulmicort Respules] 0.5 mg IH Q12HRT #30 nebu 02/02/16 Unknown Rx Fluticasone [Flonase] 100 mcg NS BID #1 bottle 02/02/16 Unknown Rx Ipratropium/Albuterol Sulfate 1 ampul IH TIDRT PRN #30 ampul.neb 02/02/16 Unknown Rx [DUONEB *Not for PRN Use*] Pantoprazole [Protonix TAB] 40 mg PO QDAY #30 tablet 02/02/16 Unknown Rx Metoprolol Xl [Metoprolol 25 mg PO QDAY #30 tablet 06/09/16 Unknown Rx SUCCINATE ER TAB] Acetaminophen [Tylenol Arthritis] 650 mg PO Q6HR PRN #30 tablet.er 10/03/17 U nknown Rx Aspirin [Aspirin BABY CHEW TAB] 81 mg PO QDAY #30 tab.chew 10/03/17 Unknown Rx Potassium Chloride 20 meq PO QDAY #10 packet 10/03/17 Unknown Rx Sucralfate [Carafate] 1 gm PO Q6HR 20 Days tablet 12/03/17 Unknown Rx Telmisartan [Micardis] 20 mg PO BID 10 Days #20 tablet 03/28/19 Unknown Rx Allergies Allergy/AdvReac Type Severity Reaction Status Date / Time cyclobenzaprine AdvReac Shortness Verified 09/29/19 08:09 of Breath ED Review of Systems ROS: Stated complaint: BLOOD PRESSURE CHECK Other details as noted in HPI Constitutional: denies: chills, fever Eyes: denies: eye pain, eye discharge, vision change ENT: denies: ear pain, throat pain Respiratory: denies: cough, shortness of breath, wheezing Cardiovascular: denies: chest pain, palpitations Endocrine: no symptoms reported Gastrointestinal: denies: abdominal pain, nausea, diarrhea Genitourinary: denies: urgency, dysuria Musculoskeletal: denies: back pain, joint swelling, arthralgia Skin: denies: rash, lesions Neurological: denies: headache, weakness, paresthesias Psychiatric: denies: anxiety, depression Hematological/Lymphatic: denies: easy bleeding, easy bruising ED Past Medical Hx - Past Medical History Hx Hypertension: Yes Hx Heart Attack/AMI: (coronary artery disease) Hx COPD: Yes Additional medical history: CAD, "prostate problems" - Surgical History Hx Open Heart Surgery: Yes (CABG (, 2011)) Additional Surgical History: hernia repair - Social History Smoking Status: Never Smoker Substance Use Type: None - Medications Home Medications: Home Medications Medication Instructions Recorded Confirmed Last Taken Type Arformoterol Nebu [Brovana Nebu] 15 mcg IH Q12HRT #30 ml 02/02/16 03/28/19 Unknown Rx Budesonide [Pulmicort Respules] 0.5 mg IH Q12HRT #30 nebu 02/02/16 03/28/19 Unknown Rx Fluticasone [Flonase] 100 mcg NS BID #1 bottle 02/02/16 03/28/19 Unknown Rx Ipratropium/Albuterol Sulfate 1 ampul IH TIDRT PRN #30 ampul.neb 02/02/16 03/28/19 Unknown Rx [DUONEB *Not for PRN Use*] Pantoprazole [Protonix TAB] 40 mg PO QDAY #30 tablet 02/02/16 03/28/19 Unknown Rx Aspirin 81 mg PO QDAY 06/08/16 03/28/19 Unknown History Tamsulosin [Flomax] 0.4 mg PO QDAY 06/08/16 03/28/19 Unknown History Metoprolol Xl [Metoprolol 25 mg PO QDAY #30 tablet 06/09/16 03/28/19 Unknown Rx SUCCINATE ER TAB] Acetaminophen [Tylenol Arthritis] 650 mg PO Q6HR PRN #30 tablet.er 10/03/17 03/28/19 Unknown Rx Aspirin [Aspirin BABY CHEW TAB] 81 mg PO QDAY #30 tab.chew 10/03/17 03/28/19 Unknown Rx Potassium Chloride 20 meq PO QDAY #10 packet 10/03/17 03/28/19 Unknown Rx Sucralfate [Carafate] 1 gm PO Q6HR 20 Days tablet 12/03/17 03/28/19 Unknown Rx Telmisartan [Micardis] 20 mg PO BID 10 Days #20 tablet 03/28/19 Unknown Rx ED Physical Exam - General Limitations: No Limitations General appearance: alert, in no apparent distress - Head Head exam: Present: atraumatic, normocephalic - Eye Eye exam: Present: normal appearance. Absent: scleral icterus - ENT ENT exam: Present: mucous membranes moist - Neck Neck exam: Present: normal inspection. Absent: tenderness, meningismus - Respiratory Respiratory exam: Present: normal lung sounds bilaterally. Absent: respiratory distress - Cardiovascular Cardiovascular Exam: Present: regular rate, normal rhythm. Absent: systolic murmur, diastolic murmur, rubs, gallop - GI/Abdominal GI/Abdominal exam: Present: soft, normal bowel sounds. Absent: distended, tenderness, guarding, rebound, rigid - Rectal Rectal exam: Present: deferred - Extremities Exam Extremities exam: Present: normal inspection - Back Exam Back exam: Present: normal inspection. Absent: CVA tenderness (R), CVA tenderness (L) - Neurological Exam Neurological exam: Present: alert, oriented X3, CN II-XII intact. Absent: motor sensory deficit - Psychiatric Psychiatric exam: Present: normal affect, normal mood - Skin Skin exam: Present: warm, dry, intact, normal color. Absent: rash ED Course Vital Signs 09/29/19 08:10 Temperature 98.4 F Pulse Rate 78 Respiratory 18 Rate Blood Pressure 190/107 O2 Sat by Pulse 95 Oximetry - Reevaluation(s) Reevaluation #1: Blood pressure did not require any acute reduction in the emergency department. Patient advised to increase his Micardis to 1 pill from one half twice a day 09/29/19 12:38 ED Medical Decision Making - Lab Data Result diagrams: 09/29/19 09:38 09/29/19 09:38 Critical care attestation.: If time is entered above; I have spent that time in minutes in the direct care of this critically ill patient, excluding procedure time. ED Disposition Clinical Impression: Poorly-controlled hypertension Disposition: - TO HOME OR SELFCARE Is pt being admited?: No Does the pt Need Aspirin: No Condition: Stable Instructions: Hypertension (ED) Additional Instructions: Increase your telmisartan (miscardis) to 1 pill twice a day. Follow-up with your primary care physician tomorrow. Referrals: TRIP RINCON MD [Primary Care Provider] - 3-5 Days usual, primary care [Other] - 24 Hours Time of Disposition: 12:41
[2019-09-29 13:00] VITALS: BP 167/110
== END 2019-09-29 12:58 | disposition home or self-care (01) ==
LOC: ED 08:07
DX: I10 Essential (primary) hypertension (principal); I25.10 Atherosclerotic heart disease of native coronary artery without angina pectoris; J44.9 Chronic obstructive pulmonary disease, unspecified; Z98.890 Other specified postprocedural states; Z79.899 Other long term (current) drug therapy; Z88.8 Allergy status to other drugs, medicaments and biological substances
CPT/HCPCS: 36415; 71045; 80048; 80076; 82550; 82553; 83880; 84484; 85025; 93005; 93010

== ENCOUNTER 2020-03-08 07:00 | Emergency (ER) | payer MEDICARE ==
[2020-03-08 07:29] LABS: Basophils % (Auto) 0.2 % (0.0-1.8); Eosinophils # (Auto) 0.1 K/mm3 (0.0-0.4); Eosinophils % (Auto) 1.9 % (0.0-4.3); Hemoglobin 14.9 gm/dl (11.8-15.2); Lymphocytes # (Auto) 1.9 K/mm3 (1.2-5.4); Lymphocytes % (Auto) 31.2 % (13.4-35.0); Monocytes # (Auto) 0.5 K/mm3 (0.0-0.8); Monocytes % (Auto) 8.3 % (0.0-7.3)
[2020-03-08 07:38] LABS: Hematocrit 45.1 % (35.5-45.6); Mean Corpuscular HGB Conc 33 % (32-34); Mean Corpuscular Volume 91 fl (84-94); Platelet Count 190 K/mm3 (140-440); Red Blood Count 4.95 M/mm3 (3.65-5.03); Red Cell Distribution Width 14.6 % (13.2-15.2)
[2020-03-08 07:53] LABS: BUN/Creatinine Ratio 9; Blood Urea Nitrogen 13 mg/dL (9-20); Calcium 9.5 mg/dL (8.4-10.2); Hemolysis Index 15
--- NOTE | 2020-03-08 07:55 | XRay Report ---
CHEST 1 VIEW INDICATION: Chest Pain. COMPARISON: 09/29/2019. FINDINGS: Support devices: None. Heart: Within normal limits. Status post previous median sternotomy. Lungs/Pleura: No acute air space or interstitial disease. Additional findings: None. IMPRESSION: No acute abnormality. Signer Name: Ole Melton MD Signed: 03/08/2020 7:50 AM Workstation Name: [facility] [employer]
[2020-03-08] MEDS ORDERED: LIDOCAINE VISCOUS 2% 15 ML ORAL LIQD PO ONE (08:14)
[2020-03-08] MEDS ORDERED: ALUM-MAG HYDROXIDE-SIMETHICONE 200-200-20MG/5ML ORAL LIQD 30 ML PO ONE (08:14)
--- NOTE | 2020-03-08 08:14 | Emergency Department Report ---
ED Chest Pain HPI - General Chief Complaint: Chest Pain Stated Complaint: BACK/CHEST PAIN Time Seen by Provider: 03/08/20 07:59 Source: patient Mode of arrival: Ambulatory Limitations: No Limitations - History of Present Illness Initial Comments: 74-year-old male with a past medical history of quadruple bypass, COPD, and hypertension presents to the hospital complaining of right arm paresthesia and chest pain. Patient states that for the past 1 month he has been having lower back pain with numbness to his left groin area. He is currently being worked up by his PMD and had an outpatient x-ray performed. Patient states his tentative diagnosis is arthritis but he also has a history of herniated disc and his doctor is ordering additional outpatient imaging. The evening of February for patient took 1000 mg of Tylenol for his back pain and is concerned that he might have overdosed on the medication. He woke up at 4 AM February 04 with right arm tingling sensation that improved with shaking his arm. Patient also noticed chest tightness described as a lump in his chest. Patient states he has felt similar "lumps in his chest" associated with GERD and eating spicy food. Patient has had constant 6/10 chest discomfort for over 24 hours. No aggra vating or alleviating factors reported. Patient denies nausea, vomiting, diaphoresis, shortness of breath, calf tenderness, or leg edema. Last stress was this neg in 2016. 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 Huertas PMD DR Amie Roberts Severity scale (0 -10): 0 - Related Data Home Medications Medication Instructions Recorded Confirmed Last Taken Aspirin 81 mg PO QDAY 06/08/16 03/28/19 Unknown Tamsulosin [Flomax] 0.4 mg PO QDAY 06/08/16 03/28/19 Unknown Previous Rx's Medication Instructions Recorded Last Taken Type Arformoterol Nebu [Brovana Nebu] 15 mcg IH Q12HRT #30 ml 02/02/16 Unknown Rx Budesonide [Pulmicort Respules] 0.5 mg IH Q12HRT #30 nebu 02/02/16 Unknown Rx Fluticasone [Flonase] 100 mcg NS BID #1 bottle 02/02/16 Unknown Rx Ipratropium/Albuterol Sulfate 1 ampul IH TIDRT PRN #30 ampul.neb 02/02/16 Unknown Rx [DUONEB *Not for PRN Use*] Metoprolol Xl [Metoprolol 25 mg PO QDAY #30 tablet 06/09/16 Unknown Rx SUCCINATE ER TAB] Acetaminophen [Tylenol Arthritis] 650 mg PO Q6HR PRN #30 tablet.er 10/03/17 Unknown Rx Aspirin [Aspirin BABY CHEW TAB] 81 mg PO QDAY #30 tab.chew 10/03/17 Unknown Rx Potassium Chloride 20 meq PO QDAY #10 packet 10/03/17 Unknown Rx Sucralfate [Carafate] 1 gm PO Q6HR 20 Days tablet 12/03/17 Unknown Rx Telmisartan [Micardis] 20 mg PO BID 10 Days #20 tablet 03/28/19 Unknown Rx Mag Hydrox/Aluminum Hyd/Simeth 20 ml PO QID PRN #1 bottle 03/08/20 Unknown Rx [Maalox Advanced Suspension] Pantoprazole [Protonix TAB] 40 mg PO QDAY #30 tablet 03/08/20 Unknown Rx Allergies Allergy/AdvReac Type Severity Reaction Status Date / Time cyclobenzaprine AdvReac Shortness Verified 09/29/19 08:09 of Breath Heart Score - HEART Score History: Slightly suspicious EKG: Normal Age: > 65 Risk factors: > 3 risk factors or hx of atherosclerotic disease Troponin: < normal limit HEART Score: 4 ED Review of Systems ROS: Stated complaint: BACK/CHEST PAIN Other details as noted in HPI Comment: All other systems reviewed and negative ED Past Medical Hx - Past Medical History Previous Medical History?: Yes Hx Hypertension: Yes Hx Heart Attack/AMI: (coronary artery disease) Hx COPD: Yes Additional medical history: CAD, "prostate problems" - Surgical History Past Surgical History?: Yes Hx Open Heart Surgery: Yes (CABG (triple, 2011)) Additional Surgical History: hernia repair - Social History Smoking Status: Never Smoker Substance Use Type: None - Medications Home Medications: Home Medications Medication Instructions Recorded Confirmed Last Taken Type Arformoterol Nebu [Brovana Nebu] 15 mcg IH Q12HRT #30 ml 02/02/16 03/28/19 Unknown Rx Budesonide [Pulmicort Respules] 0.5 mg IH Q12HRT #30 nebu 02/02/16 03/28/19 Unknown Rx Fluticasone [Flonase] 100 mcg NS BID #1 bottle 02/02/16 03/28/19 Unknown Rx Ipratropium/Albuterol Sulfate 1 ampul IH TIDRT PRN #30 ampul.neb 02/02/16 03/28/19 Unknown Rx [DUONEB *Not for PRN Use*] Aspirin 81 mg PO QDAY 06/08/16 03/28/19 Unknown History Tamsulosin [Flomax] 0.4 mg PO QDAY 06/08/16 03/28/19 Unknown History Metoprolol Xl [Metoprolol 25 mg PO QDAY #30 tablet 06/09/16 03/28/19 Unknown Rx SUCCINATE ER TAB] Acetaminophen [Tylenol Arthritis] 650 mg PO Q6HR PRN #30 tablet.er 10/03/17 03/28/19 Unknown Rx Aspirin [Aspirin BABY CHEW TAB] 81 mg PO QDAY #30 tab.chew 10/03/17 03/28/19 Unknown Rx Potassium Chloride 20 meq PO QDAY #10 packet 10/03/17 03/28/19 Unknown Rx Sucralfate [Carafate] 1 gm PO Q6HR 20 Days tablet 12/03/17 03/28/19 Unknown Rx Telmisartan [Micardis] 20 mg PO BID 10 Days #20 tablet 03/28/19 Unknown Rx Mag Hydrox/Aluminum Hyd/Simeth 20 ml PO QID PRN #1 bottle 03/08/20 Unknown Rx [Maalox Advanced Suspension] Pantoprazole [Protonix TAB] 40 mg PO QDAY #30 tablet 03/08/20 Unknown Rx ED Physical Exam - General Limitations: No Limitations - Other Other exam information: General: No acute distress Head: Atraumatic Eyes: normal appearance ENT: Moist mucous membranes Neck: Normal appearance, no midline tenderness Chest: Clear to auscultation bilaterally CV: Regular rate and rhythm, chest wall nontender Abdomen: Soft, normal bowel sounds, nontender, nondistended, no rebound or guarding Back: Normal inspection Extremity: Normal inspection, full range of motion Neuro: Alert O x 3, no facial asymmetry, speech clear, no gross motor sensory deficit Psych: Appropriate behavior Skin: No rash ED Course Vital Signs 03/08/20 03/08/20 03/08/20 07:05 07:06 07:49 Temperature 98.2 F 98.2 F Pulse Rate 94 H 91 H Respiratory 18 18 Rate Blood Pressure 148/89 148/89 147/98 O2 Sat by Pulse 100 99 Oximetry 03/08/20 03/08/20 03/08/20 07:50 08:00 08:15 Temperature 98.4 F Pulse Rate 85 80 Respiratory 19 15 Rate Blood Pressure 126/92 131/91 O2 Sat by Pulse 100 100 Oximetry 03/08/20 03/08/20 03/08/20 08:30 08:45 09:00 Temperature Pulse Rate 79 74 78 Respiratory 18 18 19 Rate Blood Pressure 126/87 129/90 130/90 O2 Sat by Pulse 100 100 100 Oximetry 03/08/20 03/08/20 03/08/20 09:16 09:30 09:46 Temperature Pulse Rate 102 H 81 77 Respiratory 20 21 20 Rate Blood Pressure 130/90 130/90 130/90 O2 Sat by Pulse 100 100 100 Oximetry 03/08/20 03/08/20 03/08/20 10:00 10:30 11:00 Temperature Pulse Rate 77 78 74 Respiratory 15 16 13 Rate Blood Pressure 124/92 124/92 138/89 O2 Sat by Pulse 100 100 100 Oximetry - Consultations Consultation #1: 03/08/20 11:16 case d/w Radha Hernandez WELLNESS SPECIALIST working with Dr Fletcher. ekg reviewed. rec out pt f/u. Dr Fletcher came to eval pt. They will arrange for outpt stress testing and reeval. CARLOZ score - Carloz Score Age > 65: (1) Yes Aspirin use within the Past 7 Days: (1) Yes 3 or more CAD Risk Factors: (1) Yes 2 or more Angina events in past 24 hrs: (1) Yes Known CAD with more than 50% Stenosis: (0) No Elevated Cardiac Markers: (0) No ST Deviation Greater than 0.5mm: (0) No CARLOZ Score: 4 ED Medical Decision Making - Lab Data Result diagrams: 03/08/20 07:12 03/08/20 07:12 Lab Results 03/08/20 03/08/20 03/08/20 Range/Units 07:12 07:12 07:12 WBC 6.1 (4.5-11.0) K/mm3 RBC 4.95 (3.65-5.03) M/mm3 Hgb 14.9 (11.8-15.2) gm/dl Hct 45.1 (35.5-45.6) % MCV 91 (84-94) fl MCH 31 (28-32) pg MCHC 33 (32-34) % RDW 14.6 (13.2-15.2) % Plt Count 190 (140-440) K/mm3 Lymph % (Auto) 31.2 (13.4-35.0) % [place] % (Auto) 8.3 H (0.0-7.3) % Eos % (Auto) 1.9 (0.0-4.3) % Baso % (Auto) 0.2 (0.0-1.8) % Lymph # 1.9 (1.2-5.4) K/mm3 [place] # 0.5 (0.0-0.8) K/mm3 Eos # 0.1 (0.0-0.4) K/mm3 Baso # 0.0 (0.0-0.1) K/mm3 Seg Neutrophils % 58.4 (40.0-70.0) % Seg Neutrophils # 3.5 (1.8-7.7) K/mm3 Sodium 141 (137-145) mmol/L Potassium 3.5 L (3.6-5.0) mmol/L Chloride 100.6 (98-107) mmol/L Carbon Dioxide 29 (22-30) mmol/L Anion Gap 15 mmol/L BUN 13 (9-20) mg/dL Creatinine 1.5 (0.8-1.5) mg/dL Estimated GFR 55 ml/min BUN/Creatinine Ratio 9 % Glucose 119 H (75-100) mg/dL Calcium 9.5 (8.4-10.2) mg/dL Total Bilirubin 0.70 (0.1-1.2) mg/dL Direct Bilirubin < 0.2 (0-0.2) mg/dL Indirect Bilirubin 0.5 mg/dL AST 12 (5-40) units/L ALT 13 (7-56) units/L Alkaline Phosphatase 69 (35-129) units/L Troponin T < 0.010 (0.00-0.029) ng/mL Total Protein 6.8 (6.3-8.2) g/dL Albumin 3.9 (3.9-5) g/dL Albumin/Globulin Ratio 1.3 % 05/04/20 Range/Units 10:09 WBC (4.5-11.0) K/mm3 RBC (3.65-5.03) M/mm3 Hgb (11.8-15.2) gm/dl Hct (35.5-45.6) % MCV (84-94) fl MCH (28-32) pg MCHC (32-34) % RDW (13.2-15.2) % Plt Count (140-440) K/mm3 Lymph % (Auto) (13.4-35.0) % [place] % (Auto) (0.0-7.3) % Eos % (Auto) (0.0-4.3) % Baso % (Auto) (0.0-1.8) % Lymph # (1.2-5.4) K/mm3 [place] # (0.0-0.8) K/mm3 Eos # (0.0-0.4) K/mm3 Baso # (0.0-0.1) K/mm3 Seg Neutrophils % (40.0-70.0) % Seg Neutrophils # (1.8-7.7) K/mm3 Sodium (137-145) mmol/L Potassium (3.6-5.0) mmol/L Chloride (98-107) mmol/L Carbon Dioxide (22-30) mmol/L Anion Gap mmol/L BUN (9-20) mg/dL Creatinine (0.8-1.5) mg/dL Estimated GFR ml/min BUN/Creatinine Ratio % Glucose (75-100) mg/dL Calcium (8.4-10.2) mg/dL Total Bilirubin (0.1-1.2) mg/dL Direct Bilirubin (0-0.2) mg/dL Indirect Bilirubin mg/dL AST (5-40) units/L ALT (7-56) units/L Alkaline Phosphatase (35-129) units/L Troponin T < 0.010 (0.00-0.029) ng/mL Total Protein (6.3-8.2) g/dL Albumin (3.9-5) g/dL Albumin/Globulin Ratio % - EKG Data -: EKG Interpreted by Or EKG shows normal: sinus rhythm, ST-T waves (no stemi) Rate: normal (88) - EKG Data When compared to previous EKG there are: no significant change (09/2019) 03/08/20 10:28 repeat bmp nsr rate 77, no stemi - Radiology Data Radiology results: report reviewed CHEST 1 VIEW INDICATION: Chest Pain. COMPARISON: 09/29/2019. FINDINGS: Support devices: None. Heart: Within normal limits. Status post previous median sternotomy. Lungs/Pleura: No acute air space or interstitial disease. Additional findings: None. IMPRESSION: No acute abnormality. - Medical Decision Making Patient states that he initially felt the pain he woke up felt like a brick was lying on his chest. Throughout the day he describes the pain as a half a brick on his chest. After receiving Maalox and viscous lidocaine he now states he feels like his level in his chest and more like his normal reflux. pain has been constant greater than 1 day with normal unchanged EKG and troponin negative x2 case d/w cardiology. Dr Fletcher came to see pt. Confirms negative stress test in 2017 pt with hx of gerd and symptoms seem similar. Improvement with GI cocktail in ED patient will be discharged on Maalox Patient is not exhibiting any stroke symptoms and likely experience paresthesias due to sleep physician that improved quickly with movement of his arm. Nonfocal neuro exam at this time Patient has ongoing back pain with history of herniated disc and is receiving ongoing outpatient evaluation - Differential Diagnosis Patient with chest pain, GERD, CT, unstable angina, paresthesias, radicular Critical Care Time: No Critical care attestation.: If time is entered above; I have spent that time in minutes in the direct care of this critically ill patient, excluding procedure time. ED Disposition Clinical Impression: GERD (gastroesophageal reflux disease), Chest tightness, Paresthesia, Back pain Disposition: DC-01 TO HOME OR SELFCARE Is pt being admited?: No Does the pt Need Aspirin: No Condition: Stable Instructions: Chest Pain (ED), Gastroesophageal Reflux Disease (ED), Paresthesia (ED) Additional Instructions: Take the medication as prescribed. Follow-up with your doctor or doctor/clinic provided. Return if symptoms worsen as indicated by your discharge instructio ns. Prescriptions: Mag Hydrox/Aluminum Hyd/Simeth [Maalox Advanced Suspension] 20 ml PO QID PRN #1 bottle PRN Reason: Indigestion Pantoprazole [Protonix TAB] 40 mg PO QDAY #30 tablet Referrals: AMIE ROBERTS DO [Referring] - 3-5 Days ALIVIA VALE MD [Staff Physician] - 3-5 Days Time of Disposition: 11:37 - Assessment Assessment Interval: Baseline - Level of Consciousness 1a. Level of Consciousness: alert/keenly responsive - LOC Questions 1b. LOC Questions: answers both correctly - LOC Command 1c. LOC Commands: performs tasks correctly - Best Gaze 2. Best Gaze: normal - Visual 3. Visual: no visual loss - Facial Palsy 4. Facial Palsy: normal symmetrical movement - Motor Arm 5a. Motor Arm Left: no drift 5b. Motor Arm Right: no drift - Motor Leg 6a. Motor Leg Left: no drift 6b. Motor Leg Right: no drift - Limb Ataxia 7. Limb Ataxia: absent - Sensory 8. Sensory: normal - Best Language 9. Best Language: no aphasia - Dysarthria 10. Dysarthria: normal - Extinction and Inattention 11. Extinction/Inattention: no abnormality - Scoring Total Score: 0 Stroke Severity: No Stroke Symptoms
[2020-03-08 08:20] LABS: Alanine Aminotransferase 13 units/L (7-56); Albumin 3.9 g/dL (3.9-5)
[2020-03-08 08:40] LABS: Bilirubin,Direct < 0.2 mg/dL (0-0.2)
[2020-03-08 11:06] VITALS: BP 138/89
--- NOTE | 2020-03-08 11:33 | Consultation ---
History of Present Illness Consult date: 03/08/20 Requesting physician: PRESTON MACE Consult reason: chest pain History of present illness: The pt is a 74-year-old male with a past medical history of CAD s/p CABG in 2011, COPD, former smoker, HTN, HLP. He is followed in our office by Dr. Wilkes. He presented with multiple complaints, including right arm paresthesia, right hip pain, and atypical chest pain. Patient states that for the past 1 month he has been having lower back pain with numbness to his left groin area. He is currently being worked up by his PMD and had an outpatient x-ray performed. Patient states his tentative diagnosis is arthritis but he also has a history of herniated disc and his doctor is ordering additional outpatient imaging. Yester day evening the patient took 1000 mg of Tylenol for his back pain and is concerned that he might have overdosed on the medication. He woke up with right arm tingling sensation that improved with shaking his arm. Patient also noticed chest tightness described as a lump in his chest. Patient states he has felt similar "lumps in his chest" associated with GERD and eating spicy food. Patient has had constant 6/10 chest discomfort for over 24 hours. No aggravating or alleviating factors reported. Patient denies nausea, vomiting, diaphoresis, shortness of breath, calf tenderness, or leg edema. Last stress in 02/2017 was negative. Past History Past Medical History: other (as per HPI) Medications and Allergies Allergies Allergy/AdvReac Type Severity Reaction Status Date / Time cyclobenzaprine AdvReac Shortness Verified 09/29/19 08:09 of Breath Home Medications Medication Instructions Recorded Confirmed Last Taken Type Arformoterol Nebu [Brovana Nebu] 15 mcg IH Q12HRT #30 ml 02/02/16 03/28/19 Unknown Rx Budesonide [Pulmicort Respules] 0.5 mg IH Q12HRT #30 nebu 02/02/16 03/28/19 Unknown Rx Fluticasone [Flonase] 100 mcg NS BID #1 bottle 02/02/16 03/28/19 Unknown Rx Ipratropium/Albuterol Sulfate 1 ampul IH TIDRT PRN #30 ampul.neb 02/02/16 03/28/19 Unknown Rx [DUONEB *Not for PRN Use*] Pantoprazole [Protonix TAB] 40 mg PO QDAY #30 tablet 02/02/16 03/28/19 Unknown Rx Aspirin 81 mg PO QDAY 06/08/16 03/28/19 Unknown History Tamsulosin [Flomax] 0.4 mg PO QDAY 06/08/16 03/28/19 Unknown History Metoprolol Xl [Metoprolol 25 mg PO QDAY #30 tablet 06/09/16 03/28/19 Unknown Rx SUCCINATE ER TAB] Acetaminophen [Tylenol Arthritis] 650 mg PO Q6HR PRN #30 tablet.er 10/03/17 03/28/19 Unknown Rx Aspirin [Aspirin BABY CHEW TAB] 81 mg PO QDAY #30 tab.chew 10/03/17 03/28/19 Unknown Rx Potassium Chloride 20 meq PO QDAY #10 packet 10/03/17 03/28/19 Unknown Rx Sucralfate [Carafate] 1 gm PO Q6HR 20 Days tablet 12/03/17 03/28/19 Unknown Rx Telmisartan [Micardis] 20 mg PO BID 10 Days #20 tablet 03/28/19 Unknown Rx Review of Systems Constitutional: no weight loss, no weight gain, no fever, no chills, no sweats Ears, nose, mouth and throat: no ear pain, no nose pain, no sinus pressure, no sinus pain Cardiovascular: chest pain, no orthopnea, no palpitations, no rapid/irregular heart beat, no edema, no syncope, no lightheadedness, no shortness of breath, no dyspnea on exertion, no high blood pressure Respiratory: no cough, no shortness of breath, no dyspnea on exertion, no congestion, no wheezing, no pain on inspiration Gastrointestinal: no abdominal pain, no nausea, no vomiting, no diarrhea, no constipation, no change in bowel habits Genitourinary Male: no dysuria, no hematuria, no flank pain, no discharge, no urinary frequency, no urinary hesitancy Musculoskeletal: low back pain Integumentary: no rash, no pruritis, no redness, no sores, no wounds Neurological: no head injury, no paralysis, no weakness, no tingling, no seizures, no syncope Psychiatric: no anxiety Endocrine: no cold intolerance, no heat intolerance Hematologic/Lymphatic: no easy bruising, no easy bleeding Allergic/Immunologic: no urticaria Physical Examination Vital Signs Temp Pulse Resp BP Pulse Ox 98.2 F 94 H 18 148/89 100 03/08/20 07:05 03/08/20 07:05 03/08/20 07:05 03/08/20 07:05 03/08/20 07:05 General appearance: no acute distress HEENT: Positive: PERRL, Normocephaly, Mucus Membranes Moist Neck: Positive: neck supple, trachea midline Cardiac: Positive: Reg Rate and Rhythm, S1/S2 Lungs: Positive: clear to auscultation Neuro: Positive: Grossly Intact Abdomen: Negative: Tender Skin: Negative: Rash Musculoskeletal: No Pain Extremities: Absent: edema Results 03/08/20 07:12 03/08/20 07:12 Cardiac Enzymes 03/08/20 Range/Units 07:12 AST 12 (5-40) units/L CBC 03/08/20 Range/Units 07:12 WBC 6.1 (4.5-11.0) K/mm3 RBC 4.95 (3.65-5.03) M/mm3 Hgb 14.9 (11.8-15.2) gm/dl Hct 45.1 (35.5-45.6) % Plt Count 190 (140-440) K/mm3 Lymph # 1.9 (1.2-5.4) K/mm3 [place] # 0.5 (0.0-0.8) K/mm3 Eos # 0.1 (0.0-0.4) K/mm3 Baso # 0.0 (0.0-0.1) K/mm3 Comprehensive Metabolic Panel 03/08/20 03/08/20 Range/Units 07:12 07:12 Sodium 141 (137-145) mmol/L Potassium 3.5 L (3.6-5.0) mmol/L Chloride 100.6 (98-107) mmol/L Carbon Dioxide 29 (22-30) mmol/L BUN 13 (9-20) mg/dL Creatinine 1.5 (0.8-1.5) mg/dL Glucose 119 H (75-100) mg/dL Calcium 9.5 (8.4-10.2) mg/dL Direct Bilirubin < 0.2 (0-0.2) mg/dL Indirect Bilirubin 0.5 mg/dL AST 12 (5-40) units/L ALT 13 (7-56) units/L Alkaline Phosphatase 69 (35-129) units/L Total Protein 6.8 (6.3-8.2) g/dL Albumin 3.9 (3.9-5) g/dL - Imaging and Cardiology EKG: report reviewed, image reviewed EKG interpretations - Telemetry EKG Rhythm: Sinus Rhythm - EKG Sinus rhythms and dysrhythmias: sinus rhythm Repolarization changes or abnormalities: nonspecific abnormality, ST segment, and/or T wave Assessment and Plan Diana negative for AMI. ECG with NAF. Atypical chest pain currently resolved. Pt may discharge from cardiology standpoint on home cardiac regimen. Follow up in our [place] office for PET MPI on 03/24/2020 @ 9:00AM. Follow up in our [place] office with Dr. Wilkes on 04/15/2020 @ 9:00AM. The patent has been seen in conjunction with Dr. Fletcher who agrees with the as sessment and plan of care. - Patient Problems (1) Atypical chest pain Current Visit: Yes Status: Resolved (2) CAD (coronary artery disease) Current Visit: Yes Status: Chronic (3) Hx of CABG Current Visit: Yes Status: Chronic (4) COPD (chronic obstructive pulmonary disease) Current Visit: Yes Status: Chronic (5) HTN (hypertension) Current Visit: Yes Status: Chronic Qualifiers: Hypertension type: essential hypertension Qualified Code(s): I10 - Essential (primary) hypertension (6) Hyperlipidemia Current Visit: Yes Status: Chronic (7) GERD (gastroesophageal reflux disease) Current Visit: Yes Status: Chronic
== END 2020-03-08 11:54 | disposition home or self-care (01) ==
LOC: ED 07:00
DX: K21.9 Gastro-esophageal reflux disease without esophagitis (principal); R07.89 Other chest pain; M54.9 Dorsalgia, unspecified; R20.2 Paresthesia of skin; I10 Essential (primary) hypertension; I25.10 Atherosclerotic heart disease of native coronary artery without angina pectoris; J44.9 Chronic obstructive pulmonary disease, unspecified; Z88.8 Allergy status to other drugs, medicaments and biological substances; Z79.899 Other long term (current) drug therapy; Z98.890 Other specified postprocedural states; Z95.1 Presence of aortocoronary bypass graft
CPT/HCPCS: 36415; 71045; 80048; 80076; 84484; 85025; 93005

== ENCOUNTER 2021-02-23 18:07 | Emergency (ER) | payer MEDICARE ==
--- NOTE | 2021-02-23 19:11 | Emergency Department Report ---
ED General Adult HPI - General Chief complaint: Neck Pain/Injury Stated complaint: PAIN IN NECK Time Seen by Provider: 02/23/21 19:02 Source: patient Mode of arrival: Ambulatory Limitations: No Limitations - History of Present Illness Initial comments: 75-year-old male patient with history of aneurysmal disease, hypertension, tobacco use, and quadruple bypass presents to the emergency department with complaints of nontraumatic left-sided neck pain radiating into his left parietal scalp area with associated paresthesias in his right hand starting 1 week ago. Patient has experienced back pain on previous occasions, but has no known history of neck problems. Patient states the pain and paresthesias are intermittent, unrelated to exertion. He cannot recall any precipitating event or activity preceding onset of symptoms. He is not currently under the care of a chiropractor. Denies seizure, syncope, vision changes, weakness, chest pain, shortness of breath, fever, rash. Denies all other complaints at this time. - Related Data Home Medications Medication Instructions Recorded Confirmed Last Taken Aspirin 81 mg PO QDAY 06/08/16 03/28/19 Unknown Tamsulosin [Flomax] 0.4 mg PO QDAY 06/08/16 03/28/19 Unknown Previous Rx's Medication Instructions Recorded Last Taken Type Arformoterol Nebu [Brovana Nebu] 15 mcg IH Q12HRT #30 ml 02/02/16 Unknown Rx Budesonide [Pulmicort Respules] 0.5 mg IH Q12HRT #30 nebu 02/02/16 Unknown Rx Fluticasone [Flonase] 100 mcg NS BID #1 bottle 02/02/16 Unknown Rx Ipratropium/Albuterol Sulfate 1 ampul IH TIDRT PRN #30 ampul.neb 02/02/16 Unknown Rx [DUONEB *Not for PRN Use*] Metoprolol Xl [Metoprolol 25 mg PO QDAY #30 tablet 06/09/16 Unknown Rx SUCCINATE ER TAB] Acetaminophen [Tylenol Arthritis] 650 mg PO Q6HR PRN #30 tablet.er 10/03/17 Unknown Rx Aspirin [Aspirin BABY CHEW TAB] 81 mg PO QDAY #30 tab.chew 10/03/17 Unknown Rx Potassium Chloride 20 meq PO QDAY #10 packet 10/03/17 Unknown Rx Sucralfate [Carafate] 1 gm PO Q6HR 20 Days tablet 12/03/17 Unknown Rx Telmisartan [Micardis] 20 mg PO BID 10 Days #20 tablet 03/28/19 Unknown Rx Mag Hydrox/Aluminum Hyd/Simeth 20 ml PO QID PRN #1 bottle 03/08/20 Unknown Rx [Maalox Advanced Suspension] Pantoprazole [Protonix TAB] 40 mg PO QDAY #30 tablet 03/08/20 Unknown Rx Lidocaine [Lidoderm] 1 each TP BID #20 adh..patch 02/24/21 Unknown Rx Naproxen 500 mg PO BID #20 tablet 02/24/21 Unknown Rx Allergies Allergy/AdvReac Type Severity Reaction Status Date / Time cyclobenzaprine AdvReac Shortness Verified 02/23/21 18:23 of Breath ED Review of Systems ROS: Stated complaint: PAIN IN NECK Other details as noted in HPI Other: GENERAL: Negative for fever, chills, weight change, anorexia, fatigue. ENT: Negative for ear pain, difficulty hearing, sore throat, nasal congestion, epistaxis. CARDIOVASCULAR: Negative for chest pain, palpitations, lower extremity swelling. PULMONARY: Negative for cough, dyspnea, wheezing, orthopnea, cyanosis. GASTROINTESTINAL: Negative for abdominal pain, nausea, vomiting, diarrhea, constipation. MUSCULOSKELETAL: Positive for neck pain. NEUROLOGICAL: Positive for paresthesias INTEGUMENTARY: Negative for erythema, rash, diaphoresis, laceration, ecchymosis. HEMATOLOGICAL: Negative for hemoptysis, hematemesis, hematochezia, hematuria. PSYCHIATRIC: Negative for hallucinations, suicidal ideation, homicidal ideation, anxiety, depression. ED Past Medical Hx - Past Medical History Hx Hypertension: Yes Hx Heart Attack/AMI: (coronary artery disease) Hx COPD: Yes Additional medical history: CAD, "prostate problems", HPV - Surgical History Hx Open Heart Surgery: Yes (CABG (triple, 2011)) Additional Surgical History: hernia repair - Social History Smoking Status: Former Smoker Substance Use Type: None - Medications Home Medications: Home Medications Medication Instructions Recorded Confirmed Last Taken Type Arformoterol Nebu [Brovana Nebu] 15 mcg IH Q12HRT #30 ml 02/02/16 03/28/19 Unknown Rx Budesonide [Pulmicort Respules] 0.5 mg IH Q12HRT #30 nebu 02/02/16 03/28/19 Un known Rx Fluticasone [Flonase] 100 mcg NS BID #1 bottle 02/02/16 03/28/19 Unknown Rx Ipratropium/Albuterol Sulfate 1 ampul IH TIDRT PRN #30 ampul.neb 02/02/16 03/28/19 Unknown Rx [DUONEB *Not for PRN Use*] Aspirin 81 mg PO QDAY 06/08/16 03/28/19 Unknown History Tamsulosin [Flomax] 0.4 mg PO QDAY 06/08/16 03/28/19 Unknown History Metoprolol Xl [Metoprolol 25 mg PO QDAY #30 tablet 06/09/16 03/28/19 Unknown Rx SUCCINATE ER TAB] Acetaminophen [Tylenol Arthritis] 650 mg PO Q6HR PRN #30 tablet.er 10/03/17 03/28/19 Unknown Rx Aspirin [Aspirin BABY CHEW TAB] 81 mg PO QDAY #30 tab.chew 10/03/17 03/28/19 Unknown Rx Potassium Chloride 20 meq PO QDAY #10 packet 10/03/17 03/28/19 Unknown Rx Sucralfate [Carafate] 1 gm PO Q6HR 20 Days tablet 12/03/17 03/28/19 Unknown Rx Telmisartan [Micardis] 20 mg PO BID 10 Days #20 tablet 03/28/19 Unknown Rx Mag Hydrox/Aluminum Hyd/Simeth 20 ml PO QID PRN #1 bottle 03/08/20 Unknown Rx [Maalox Advanced Suspension] Pantoprazole [Protonix TAB] 40 mg PO QDAY #30 tablet 03/08/20 Unknown Rx Lidocaine [Lidoderm] 1 each TP BID #20 adh..patch 02/24/21 Unknown Rx Naproxen 500 mg PO BID #20 tablet 02/24/21 Unknown Rx ED Physical Exam - General Limitations: No Limitations - Other Other exam information: General: Awake and alert. No acute distress. Head: Atraumatic, normocephalic. Eyes: EOMI. Pupils are equal and round. Normal sclera and conjunctiva. ENT: Oral mucosa is moist. Normal pharyngeal exam. Neck: Supple. No lymphadenopathy. There is no posterior cervical midline tenderness. No step-offs. Tenderness to palpation along the left paraspinal cervical region and left side of the neck. No carotid bruits or thrills. No JVD. Pulmonary: No respiratory distress. Clear to auscultation bilaterally. Cardiac: Regular rate and rhythm. Pulses are palpable and equal bilaterally. No lower extremity cyanosis or edema. Skin: Warm and dry. No rashes. Abdomen: Soft, non-tender, non-protuberant. No guarding, rigidity, or rebound. Bowel sounds are normal. No organomegaly or masses noted. Back: Normal alignment. No CVA tenderness. Extremities: Symmetrical. Full range of motion intact. Neurological: Alert and oriented, appropriately interactive, no focal deficits. Cranial nerves II through XII intact. No evidence of Alycia's syndrome. Strength and sensation intact throughout. Psych: Cooperative. Appropriate mood and affect. Speech is evenly metered. Thoughts are logically construed. ED Course Vital Signs 02/23/21 18:19 Temperature 98 F Pulse Rate 69 Respiratory 20 Rate Blood Pressure 179/110 O2 Sat by Pulse 99 Oximetry ED Medical Decision Making - Lab Data Result diagrams: 02/23/21 19:16 02/23/21 19:16 - Radiology Data [facility] [address] [place] [address] Cat Scan Report Signed Patient: RUDDY GARCIA MR#: [id number] : 1945 Acct:[id number] Age/Sex: 75 / M ADM Date: 02/23/21 Loc: ED Attending Dr: Ordering Physician: ALIYA FRASER Date of Service: 02/23/21 Procedure(s): CT angio neck Accession Number(s): [id number] cc: ALIYA FRASER CT angio neck INDICATION / CLINICAL INFORMATION: 75 years Male; Neck pain / hand numbness; no trauma; Hx of Aortic Aneurysm. TECHNIQUE: Thin cut axial images obtained through the head during IV bolus contrast administration. Sagittal, coronal, and 3 plane MIP reconstructions performed by the technologist. NASCET type criteria used evaluate stenoses. All CT scans at this location are performed using CT dose reduction for ALARA by means of automated exposure control. COMPARISON: None available. FINDINGS: CAROTID ARTERIES: There is no significant stenosis involving carotid arteries by NASCET criteria. The carotid bifurcations are widely patent. VERTEBRAL ARTERIES: There is calcification at the origin of the left vertebral artery with mild stenosis at. Otherwise, the vertebral arteries are unremarkable without significant focal narrowing at. The vessel ca demonstrate fairly smooth contour without clear CTA evidence of dissection. ARCH: The arch of vessels are not fully included on this exam. There is no significant stenosis of the origin of the left subclavian artery. ADDITIONAL FINDINGS: There are multilevel advanced degenerative the changes involving cervical spine. IMPRESSION: There is no significant stenosis involving the carotid arteries by NASCET criteria. There is calcification at the origin of the left vertebral artery with mild stenosis. There is no clear CTA evidence of dissection. Signer Name: Zach Sanchez MD Signed: 02/23/2021 11:51 PM Workstation Name: [id number] Transcribed By: MR Dictated By: Zach Sanchez MD Electronically Authenticated By: Zach Sanchez MD Signed Date/Time: 02/23/21 235 DD/ 42 TD/TT: [facility] [address] [place] [address] Cat Scan Report Signed Patient: RUDDY GARCIA MR#: [id number] : 1945 Acct:[id number] Age/Sex: 75 / M ADM Date: 02/23/21 Loc: ED Attending Dr: Ordering Physician: ALIYA FRASER Date of Service: 02/23/21 Procedure(s): CT angio head Accession Number(s): [id number] cc: ALIYA FRASER CT angio head INDICATION / CLINICAL INFORMATION: 75 years Male; Neck pain / hand numbness; no trauma; Hx of Aneurysm. TECHNIQUE: Thin cut axial images obtained through the head during IV bolus contrast administration. Sagittal, coronal, and 3 plane MIP reconstructions performed by the technologist. NASCET type criteria used evaluate stenoses. Automated exposure control utilized for radiation reduction purposes. COMPARISON: None available. FINDINGS: INTERNAL CAROTID ARTERIES: There is atherosclerotic calcification involving intracranial ICAs without significant stenosis by NASCET criteria. VERTEBROBASILAR SYSTEM: The vertebrobasilar system demonstrate appropriate caliber without significant focal stenosis at. CEREBRAL ARTERIES: There is developmental origin of the left [employer]. Otherwise, the proximal cerebral arteries and adjacent segments demonstrate appropriate caliber without significant focal stenosis or evidence of large vessel occlusion. ANEURYSM: None identified. ADDITIONAL FINDINGS: Remainder of the surrounding soft tissues are grossly normal. IMPRESSION: There is mild calcification involving distal internal carotid arteries without significant focal stenosis involving intracranial vessels. Signer Name: Zach Sanchez MD Signed: 02/23/2021 11:57 PM Workstation Name: [id number] Transcribed By: MR Dictated By: Zach Sanchez MD Electronically Authenticated By: Zach Sanchez MD Signed Date/Time: 02/23/212356 DD/ 50 TD/TT: [facility] [address] [place] [address] Cat Scan Report Signed Patient: RUDDY GARCIA MR#: [id number] : 1945 Acct:[id number] Age/Sex: 75 / M ADM Date: 02/23/21 Loc: ED Attending Dr: Ordering Physician: ALIYA FRASER Date of Service: 02/23/21 Procedure(s): CT head/brain wo con Accession Number(s): [id number] cc: ALIYA FRASER CT head without contrast HISTORY: Neck pain / hand numbness; no trauma; Hx of Aneurysm. TECHNIQUE: Axial imaging performed from the skull apex through the skull base without the use of contrast. All CT scans at this location are performed using CT dose reduction for ALARA by means of automated exposure control. COMPARISON: CT head from 03/28/2019 FINDINGS: Parenchyma: No acute intracranial hemorrhage or parenchymal abnormality. Ventricles: There is mild diffuse brain atrophy with commensurate ventricular enlargement which is likely age appropriate. Soft tissues: Soft tissues including the orbits appear normal. Bones: No acute osseous abnormality. Sinuses: Sinuses and mastoid air cells are clear. IMPRESSION: No acute abnormality. Signer Name: Aston Crockett MD Signed: 02/23/2021 11:38 PM Workstation Name: [id number] Transcribed By: JW Dictated By: Aston Crockett MD Electronically Authenticated By: Aston Crockett MD Signed Date/Time: 02/23/212337 DD/ 36 TD/TT: Print Cancel - Medical Decision Making Differential diagnosis including but not limited to: cervical disc herniation, cervical spine stenosis, myofascial strain/sprain, spontaneous cervical artery dissection, cervical artery aneurysm On reevaluation, patient remains stable. Repeat neurological exam remains nonfocal. Due to patient's presentation in the absence of trauma with a known history of significant vascular disease to include previously diagnosed aortic aneurysm, CT/CTA of the head + neck was obtained for evaluation of possible cervical artery aneurysm vs. dissection. Imaging showed mild stenosis of the cervical arteries and multilevel degenerative changes of the cervical spine without acute process. Patient will be discharged home with appropriate analgesics and instructed to follow-up with his primary care provider for reevaluation this week. Patient expressed understanding and is agreeable plan of care. Strict return precautions provided. Repeat exam is unremarkable and benign. History, exam, diagnostic testing, and current condition do not suggest worrisome pathology to warrant further testing, continued ED treatment, admission, or surgical evaluation at this point. Given the low probability of a significant medical illness, it would be more likely to result in harm than benefit to perform further testing at this stage. Discussed findings, presumptive diagnosis, need for follow-up and specific signs/symptoms that should prompt immediate return to the emergency department. Instructions were explained in detail to the patient in addition to giving written discharge information. Patient expressed understanding and was given the opportunity to ask questions, all of which were satisfactorily answered prior to discharge home. Critical care attestation.: If time is entered above; I have spent that time in minutes in the direct care of this critically ill patient, excluding procedure time. ED Disposition Clinical Impression: Cervical myofascial strain Qualifiers: Encounter type: initial encounter Qualified Code(s): S16.1XXA - Strain of muscle, fascia and tendon at neck level, initial encounter Disposition: DC-01 TO HOME OR SELFCARE Is pt being admited?: No Does the pt Need Aspirin: No Condition: Stable Instructions: Cervical Sprain Additional Instructions: Take Tylenol every 4 hours as needed for pain. Take Naprosyn twice daily with food as needed for pain. Apply Lidoderm patches to affected area as needed for pain. Apply heat to affected area as needed for pain. Gradually advance physical activity slowly as tolerated. Follow-up with your primary care provider this week. Call tomorrow to schedule an appointment. Return to the emergency department immediately for new or worsening symptoms. Prescriptions: Lidocaine [Lidoderm] 1 each TP BID #20 adh..patch Naproxen 500 mg PO BID #20 tablet Referrals: CHASITY SAUER DO [Primary Care Provider] - 3-5 Days Time of Disposition: 00:33
[2021-02-23 19:55] LABS: Calcium 8.7 mg/dL (8.4-10.2)
[2021-02-23 20:07] LABS: Basophils % (Auto) 0.9 % (0.0-1.8); Eosinophils # (Auto) 0.4 K/mm3 (0.0-0.4); Eosinophils % (Auto) 8.5 % (0.0-4.3); Hematocrit 39.2 % (35.5-45.6); Hemoglobin 13.5 gm/dl (11.8-15.2); Lymphocytes # (Auto) 2.2 K/mm3 (1.2-5.4); Lymphocytes % (Auto) 45.6 % (13.4-35.0); Mean Corpuscular HGB Conc 34 % (32-34); Mean Corpuscular Volume 88 fl (84-94); Monocytes # (Auto) 0.4 K/mm3 (0.0-0.8); Monocytes % (Auto) 8.8 % (0.0-7.3); Platelet Count 168 K/mm3 (140-440); Red Blood Count 4.45 M/mm3 (3.65-5.03); Red Cell Distribution Width 14.4 % (13.2-15.2)
--- NOTE | 2021-02-23 23:43 | Cat Scan Report ---
CT head without contrast HISTORY: Neck pain / hand numbness; no trauma; Hx of Aneurysm. TECHNIQUE: Axial imaging performed from the skull apex through the skull base without the use of con trast. All CT scans at this location are performed using CT dose reduction for ALARA by means of aut omated exposure control. COMPARISON: CT head from 03/28/2019 FINDINGS: Parenchyma: No acute intracranial hemorrhage or parenchymal abnormality. Ventricles: There is mild diffuse brain atrophy with commensurate ventricular enlargement which is l ikely age appropriate. Soft tissues: Soft tissues including the orbits appear normal. Bones: No acute osseous abnormality. Sinuses: Sinuses and mastoid air cells are clear. IMPRESSION: No acute abnormality. Signer Name: Aston Crockett MD Signed: 02/23/2021 11:38 PM Workstation Name: [id number]
--- NOTE | 2021-02-23 23:56 | Cat Scan Report ---
CT angio neck INDICATION / CLINICAL INFORMATION: 75 years Male; Neck pain / hand numbness; no trauma; Hx of Aortic Aneurysm. TECHNIQUE: Thin cut axial images obtained through the head during IV bolus contrast administration. S agittal, coronal, and 3 plane MIP reconstructions performed by the technologist. NASCET type criteria used evaluate stenoses. All CT scans at this location are performed using CT dose reduction for ALAR A by means of automated exposure control. COMPARISON: None available. FINDINGS: CAROTID ARTERIES: There is no significant stenosis involving carotid arteries by NASCET criteria. The carotid bifurcations are widely patent. VERTEBRAL ARTERIES: There is calcification at the origin of the left vertebral artery with mild steno sis at. Otherwise, the vertebral arteries are unremarkable without significant focal narrowing at. Th e vessel ca demonstrate fairly smooth contour without clear CTA evidence of dissection. ARCH: The arch of vessels are not fully included on this exam. There is no significant stenosis of th e origin of the left subclavian artery. ADDITIONAL FINDINGS: There are multilevel advanced degenerative the changes involving cervical spine. IMPRESSION: There is no significant stenosis involving the carotid arteries by NASCET criteria. There is calcification at the origin of the left vertebral artery with mild stenosis. There is no caterina ar CTA evidence of dissection. Signer Name: Zach Sanchez MD Signed: 02/23/2021 11:51 PM Workstation Name: [id number]
--- NOTE | 2021-02-24 00:01 | Cat Scan Report ---
CT angio head INDICATION / CLINICAL INFORMATION: 75 years Male; Neck pain / hand numbness; no trauma; Hx of Aneurysm. TECHNIQUE: Thin cut axial images obtained through the head during IV bolus contrast administration. S agittal, coronal, and 3 plane MIP reconstructions performed by the technologist. NASCET type criteria used evaluate stenoses. Automated exposure control utilized for radiation reduction purposes. COMPARISON: None available. FINDINGS: INTERNAL CAROTID ARTERIES: There is atherosclerotic calcification involving intracranial ICAs without significant stenosis by NASCET criteria. VERTEBROBASILAR SYSTEM: The vertebrobasilar system demonstrate appropriate caliber without significan t focal stenosis at. 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 Otherwise, the proximal cereb ral arteries and adjacent segments demonstrate appropriate caliber without significant focal stenosis or evidence of large vessel occlusion. ANEURYSM: None identified. ADDITIONAL FINDINGS: Remainder of the surrounding soft tissues are grossly normal. IMPRESSION: There is mild calcification involving distal internal carotid arteries without significant focal sten osis involving intracranial vessels. Signer Name: Zach Sanchez MD Signed: 02/23/2021 11:57 PM Workstation Name: [id number]
[2021-02-24 01:12] VITALS: BP 154/78
== END 2021-02-24 01:12 | disposition home or self-care (01) ==
LOC: ED 18:07
DX: S16.1XXA Strain of muscle, fascia and tendon at neck level, initial encounter (principal); I10 Essential (primary) hypertension; I25.2 Old myocardial infarction; J44.9 Chronic obstructive pulmonary disease, unspecified; I25.10 Atherosclerotic heart disease of native coronary artery without angina pectoris; Z87.891 Personal history of nicotine dependence; Z88.8 Allergy status to other drugs, medicaments and biological substances; Z79.899 Other long term (current) drug therapy; Z98.890 Other specified postprocedural states; X58.XXXA Exposure to other specified factors, initial encounter; Y93.89 Activity, other specified; Y92.89 Other specified places as the place of occurrence of the external cause; Y99.8 Other external cause status
CPT/HCPCS: 36415; 70450; 70496; 70498; 80053; 85025; 99284; Q9967